=== PATIENT | male | born 1940 | race Caucasian/White ===

== ENCOUNTER 2020-11-17 19:59 | Inpatient (IN) | payer MEDICARE, OTHER ==
[~2020-11-17] VITALS: Ht 198.1 cm; Wt 86.9 kg
[~2020-11-17 19:59] MED LIST: ASPIRIN325 MG PO; CARVEDILOL6.25 MG PO; FUROSEMIDE40 MG PO; LOSARTAN POTASS50 MG PO; NICOTINE PATCH1 EAC1 TD; OMEPRAZOLE20 MG PO; POTASSIUM CHLO20 ME1 PO; SUCRALFATE1 GM/10 ML PO; VENTOLIN HFA18 GM INH
[2020-11-17] MEDS ORDERED: METFORMIN HCL500 M1 PO (20:41)
--- NOTE | 2020-11-18 02:57 | NUR ---
11/18/20 0257 Arely Lock 0140: PT ARRIVES TO CCU RM 126 FROM OR WITH OPA IN PLACE AND EYES CLOSED. PT DOES NOT AROUSE TO TUCK IN TO RM. PT ON 8 L VIA MASK, FOGS MASK WITH RESP. 0151: PT WAKES UP AND OPENS EYES, LOOKS AROUND ROOM. PT TRYS TO TALK WITH OPA IN PLACE AND IS INSTRUCTED TO SPIT OPA OUT. PT FOLLOWS COMMANDS AND OPA IS REMOVED. PT GRABS TOWARD BP CUFF AND NG TUBE, REORIENTED. PT DENIES ANY NAUSEA OR PAIN WHEN ASKED AND STATES, "IT FEELS BETTER ALREADY." XRAY IN RM AT THIS TIME. 0155: RESP THERAPY IN PT ROOM, TITRATES O2 AND CHANGES MASK TO OXYMASK. NG ON INTERMITTENT WALL SUCTION. NICO DRAIN EMPTIED OF APPROX 90 MLS SANGUINOUS DRAINAGE. PT CONT TO DENY PAIN OR NAUSEA, HOB RAISED, BOTH IV'S IN R AC SL D/T CHF RESTRICTIONS. 0205: O2 REMOVED AT THIS TIME AND PT ENCOURAGED TO TAKE DEEP BREATHS, ABLE TO BUMP SATS TO 90% ON RA. PT STATES "VERY LITTE.. 1-2" WHEN ASKED ABOUT PAIN, STATES HE "IS TOUGH AND STILL WORKS A JUST[employer]." PT REDIRECTED FROM GRABBING AT NG TUBE, STATES "IT IS UNCOMFORTABLE." 0210: DR. BRIONES IN PT ROOM. 0215: DR. WRAY IN PT ROOM TO CONSULT. VERBAL REPORT GIVEN TO JEFFERSON ALICIA AND CARE IS TRANSFERRED AT THIS TIME.
--- NOTE | 2020-11-18 03:38 | NUR ---
0230 POST OP RECOVERY DONE BY SLICE PLUG CUTTER OPERATOR HELPER IN CCU. REPORT RECIEVED. PATIENT IS ALERT AND ORIENTED. DENIES PAIN OR NAUSEA. VS STABLE. IN TO CONSULT. DIFFICULT TO GET O2 SAT READING, SEVERAL LOCATIONS ATTEMPTED. 2L NC IN PLACE. NICO DRAIN IN RUQ, 80MLS OF SEROSANGUENOUS DRAINAGE EMPTIED BY FELIX PAULINO. MIDLINE INCISION COVERED, NO SHADOWING. RODRIGUEZ IN PLACE. URINE IS CLOWDY. NG TUBE CONNECTED TO LIWS, RED/BROWN DRAINAGE NOTED. PATIENT DECLINES TO HAVE FAMILY OR FRIENDS CALLED. LIMITED NEXT OF KIN CONTACTS AND PATIENT STATES "I'LL CALL THEM AT A MORE REASONABLE HOUR". IV FLUIDS PER ORDER. SCHEDULED LOPRESSOR AND ACCU CHECK WITH SSI. 0315 PATIENT RESTING IN BED. HOB ELEVATED. DENIES ANY NEEDS AT THIS TIME. CALL LIGHT IN REACH.
--- NOTE | 2020-11-18 05:21 | NUR ---
LAB IN TO DRAW MORNING LABS. THIS RN PULLED SAMPLE FROM IV SITE, WASTE 5MLS PER PROTOCOL. PATIENT IS ALERT AND ORIENTED. DENIES PAIN OR NAUSEA. NICO EMPTIED FOR 50 MLS SEROSANGUENOUS FLUID. RODRIGUEZ EMPTIED FOR 100 MLS CONCENTRATED URINE. IV FLUIDS PER ORDER, SITE WNL. MIDLINE DRESSING CDI. ABD MILDLY DISTENDED. NG TUBE IN PLACE, CONTINUES TO HAVE BROWN DRAINAGE.
--- NOTE | 2020-11-18 06:45 | NUR ---
patient appears to be sleeping soundly. iv fluids per order, site wnl. call light in reach. vs stable.
--- NOTE | 2020-11-18 06:45 | CONS ---
[facility] [address], [place] [address] Signed DATE OF CONSULTATION: 11/17/2020 CHIEF COMPLAINT: Epigastric abdominal pain. 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 At 7 o'clock tonight, he abruptly developed chest pain that went down to his upper abdomen. He called his neighbor and had him brought to the emergency room. In the emergency room, he does not appear particularly ill or toxic. His troponin levels were fine. EKG was showing some sinus rhythm with sinus arrhythmia. Magnesium was just little low. He was given some magnesium right now. COVID test was negative. White count was up and a lactic acid was a little up at 2.6. Chest x-ray was done and there was free air underneath the right hemidiaphragm. CT scan of chest, abdomen, and pelvis was done and there is no evidence of any dissection, but he does have free air above the liver with inflammatory changes over the front of the stomach and the duodenum. He does have diverticulosis, but no inflammatory changes. He also has a right inguinal hernia and some gallstones. The concern obviously is for a perforated ulcer. However, he seems to be taking omeprazole, sucralfate, although he is not the absolute best historian. I have been asked to see him emergently here in the ER. In the meantime, he receives Zosyn and vancomycin due to the sepsis protocol. PAST MEDICAL HISTORY: NC, congestive heart failure, hypertension, diabetes, COPD, and diverticulosis. PAST SURGICAL HISTORY: and colonoscopy with Dr. Zelaya, which he believes was negative. SOCIAL HISTORY: He continues to smoke a pack cigarettes a day. Does not drink. He is from his two children. 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 Dr. Osvaldo Chappell is a primary care provider. He prefers the [facility] pharmacy. He has a good friend, Avinash Emerson at [phone], that he has given me permission to call. FAMILY HISTORY: Apparently coronary artery disease and heart attacks. REVIEW OF SYSTEMS: He had 10 systems reviewed and he seems to be at his baseline. No major other issues. No history of peptic ulcer disease. ALLERGIES: None. Electronically Signed By: YESSENIA BRIONES MD 11/18/20 0645 PATIENT NAME: JOSE QUINONES CONSULTATION DATE OF : 36 REPORT #: [id number] PHYSICIAN: YESSENIA BRIONES MD PCP: DEISI GILLETTE MD REPORT IS CONFIDENTIAL AND NOT TO BE RELEASED WITHOUT AUTHORIZATION [facility] [address], [place] [address] Signed MEDICATIONS: Nicotine patch, carvedilol, omeprazole, sucralfate, potassium chloride, Lasix, albuterol, and metformin. PHYSICAL EXAMINATION: VITAL SIGNS: Blood pressure 127/76, heart rate 91, respiratory rate 21, temperature is 98.6. He is 99% on room air. He is 6 feet 6 inches tall at 89 kg. GENERAL: Jose is an 80-year-old gentleman, sitting semi-recumbent in his ER bed. He does not appear systemically ill or toxic. It is clear he has been a long-time smoker. He is very cooperative in general. LUNGS: Have moderately distant breath sounds. heart: Little irregular, but generally sinus rhythm. I could not specifically hear a murmur. ABDOMEN: Generally flat, but he is certainly guarding and he has peritonitis in the upper abdomen. LABORATORY DATA: His white blood count 16.9, hemoglobin 17, neutrophils 89. BUN 22 and creatinine 1.06. COVID test is negative. Lactic acid is 2.6. Magnesium is 1.6. Troponin is negative. Albumin is 4.0, lipase is 15. Blood cultures are pending. RADIOGRAPHIC STUDIES: Chest x-ray shows left ventricular hypertrophy with free air underneath the right hemidiaphragm. CT scan of the chest, abdomen, and pelvis shows the left ventricular hypertrophy. The free air anterior the liver with haziness in front of the stomach and duodenum. He has a couple of gallstones. He has a right inguinal hernia. He does have diverticulosis, but it does not appear inflamed. ASSESSMENT/PLAN: Jose is an 80-year-old gentleman, who presents with what appears to be a perforated viscus, most likely the stomach or his duodenum. He has already received IV fluids and antibiotics. We are going to be take him directly to the operating room from the emergency room. I have reviewed this with Jose in detail. I have reviewed with him a laparotomy along with the concept of oversewing or Hua patch for perforated ulcer. He understands there is risk including, but not limited to bleeding, infection, scarring, change in contour of the skin, damage to bowel, recurrent ulcers, incisional hernias as well, heart attack, stroke and blood clots and other unforeseen comorbidities. He has expressed understanding and would like to proceed. Yessenia Briones MD Electronically Signed By: YESSENIA BRIONES MD 11/18/20 0645 PATIENT NAME: JOSE QUINONES CONSULTATION DATE OF : 36 REPORT #: [id number] PHYSICIAN: YESSENIA BRIONES MD PCP: DEISI GILLETTE MD REPORT IS CONFIDENTIAL AND NOT TO BE RELEASED WITHOUT AUTHORIZATION [address] [place] [address] Signed ALB/MODL /[id number] cc: MD Osvaldo Salas DO Copies: YESSENIA BRIONES MD, ARIAN DO ~ Electronically Signed By: YESSENIA BRIONES MD 11/18/20 0645 PATIENT NAME: JOSE QUINONES CONSULTATION DATE OF : 36 REPORT #: [id number] PHYSICIAN: YESSENIA BRIONES MD PCP: DEISI GILLETTE MD REPORT IS CONFIDENTIAL AND NOT TO BE RELEASED WITHOUT AUTHORIZATION
--- NOTE | 2020-11-18 06:45 | OR ---
[facility] [address], [place] [address] Signed DATE OF OPERATION: 11/18/2020 SURGEON: Yessenia Briones MD PREOPERATIVE DIAGNOSIS: Perforated viscus. POSTOPERATIVE DIAGNOSIS: Perforated duodenal ulcer. PROCEDURE: 1. Primary repair and Hua patch of perforated duodenal ulcer. 2. Placement of drain. ESTIMATED BLOOD LOSS: None. In was 1.7 L of crystalloid. URINE OUTPUT: 300 mL over 1.5 hours. FINDINGS: Jose had significant gastric contents through most of the upper abdomen, but also down in the pelvis as well. It took 5 L of crystalloid completely irrigated and suctioned out until clear. INDICATIONS: Jose is an 80-year-old gentleman, who lives alone and apparently is estranged from his two children. He continues to smoke a pack cigarettes a day. 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 He was watching TV about 7 o'clock tonight and felt what he thought was chest pain, then it went down toward the abdomen. He called his neighbor and had him brought to the emergency room. In the emergency room, a chest x-ray was unremarkable except for free air underneath the right hemidiaphragm. White count was elevated along with his lactic acid at 2.6. His magnesium was just a little low at 1.6 and he was having some abnormal heartbeat, so that was replaced in the ER. His troponin was negative. The CT scan of chest, abdomen, and pelvis showed the free air mostly in the upper abdomen with some haziness around the anterior stomach and duodenum along with two gallstones. He does have diverticulosis and a right inguinal hernia. I have been asked to see him emergently in the emergency room. In the meantime, he was given Zosyn and vancomycin due to the sepsis protocol. I met with Jose. He was actually sitting supine semi-recumbent in his ER bed and watching TV. He was definitely guarding and had Electronically Signed By: YESSENIA BRIONES MD 11/18/20 0645 PATIENT NAME: JOSE QUINONES OPERATIVE REPORT DATE OF : 36 REPORT #: [id number] PHYSICIAN: YESSENIA BRIONES MD PCP: DEISI GILLETTE MD REPORT IS CONFIDENTIAL AND NOT TO BE RELEASED WITHOUT AUTHORIZATION [facility] [address] [place] [id number] Signed peritonitis in his upper abdomen. I explained him the current findings. I explained him the nature of midline incision with repair of gastric or perforated duodenal ulcer. I explained to him it was very unlikely this would be diverticular disease. He said he is not aware of the fact that he has a right inguinal hernia. He understands the expected intraop and postop course. We did review the risks including, but not limited to bleeding, infection, scarring, change in contour of the skin, damage to bowel, continued leak from the duodenal ulcer as well as gastric outlet obstruction, incisional hernias, and we even discussed myocardial infarction, deep vein thrombosis and strokes. He had expressed understanding and wished to proceed. PROCEDURE NOTE: Jose was taken in the operating room and placed in the supine position under general endotracheal tube anesthesia. He was already on preoperative antibiotic. We added 5000 units subcutaneous heparin. SCDs were utilized. A Suarez catheter was inserted with return of clear, but terry colored urine. He was then prepped and draped in the usual sterile fashion. A standard upper midline incision was made and carried down to the abdomen with the help of the cautery. We immediately encountered tremendous amount of gastric contents in the upper abdomen. It was suctioned out. We could easily see his perforated ulcer about 1 cm in diameter. We had placed an NG tube, but there was enough food particles in the stomach, getting much out from the stomach. We initially used his omentum to place a Hua patch without bringing the ulcer together. Unfortunately, with little pressure on the stomach that continued leak. Therefore, we took that down and we closed the ulcer primarily with interrupted 2-0 silk sutures. We then placed a Hua patch over that and sutured it back down and that proved to be a nice seal. We then used 5 L of warm saline to irrigate his entire abdomen including the pelvis. After this, a #10 flat Ulises drain was brought alongside the repair and out the right subcostal margin. It was held in place at the level of skin with 2-0 nylon suture. The fascia was reapproximated with interrupted #1 PDS sutures. Local anesthetic was injected in the abdominal wall. The dermis was reapproximated with interrupted 3-0 subcuticular Monocryl sutures. [place] were used to bring the skin back together. Unfortunately, during the middle of our surgery, he had a short segment of asystole and he had 20-30 seconds of chest compressions. We could hear his ribs pop during the procedure. He did not have increased airway pressures during the procedure. We are currently awaiting our chest x-ray in our ICU. Otherwise, he did well during the surgery. Yessenia Briones MD Electronically Signed By: YESSENIA BRIONES MD 11/18/20 0645 PATIENT NAME: JOSE QUINONES OPERATIVE REPORT DATE OF : 36 REPORT #: [id number] PHYSICIAN: YESSENIA BRIONES MD PCP: DEISI GILLETTE MD REPORT IS CONFIDENTIAL AND NOT TO BE RELEASED WITHOUT AUTHORIZATION [address] [place] [address] Signed [facility]/MODL /[id number] cc: DO Yessenia Galindo MD Copies: ROBERT HORTA ANDREW L MD ~ Electronically Signed By: YESSENIA BRIONES MD 11/18/20 0645 PATIENT NAME: JOSE QUINONES OPERATIVE REPORT DATE OF : 36 REPORT #: [id number] PHYSICIAN: YESSENIA BRIONES MD PCP: DEISI GILLETTE MD REPORT IS CONFIDENTIAL AND NOT TO BE RELEASED WITHOUT AUTHORIZATION
--- NOTE | 2020-11-18 07:30 | NUR ---
RECEIVED REPORT AT 0700, PT IN ROOM AND NO NEW CONCERNS NOTED AT THAT TIME.
--- NOTE | 2020-11-18 08:45 | NUR ---
LOBES ARE DIMINISHED, PT WANTS TO SMOKE... LUQ AND RUQ SOUNDS ARE RARE, LLQ AND RLQ SOUNDS ARE PRESENT. ABD MILDLY DISTENEDED. NO FLATUS SO FAR. PT DENIES PAIN. NO PERIPH. EDEMA NOTED. MIDLINE INCISION IS C/D/I, NICO-DRAIN HAS SOME SHADOWING PRESENT AROUND INSERTION SITE. NICO-DRAIN DRAINAGE IS SEROUSSANG. PT REFUSED INSLUIN, LOVENOX AND NICOTINE PATCH THIS MORNING. MD BRIONES AND MD WRAY ARE AWARE. WILL CONTINUE TO MONITOR.
--- NOTE | 2020-11-18 09:12 | NUR ---
PATIENT AWAKE IN BED, RODRIGUEZ AND NICO DRAINED. MOUTH SWABS PROVIDED FOR ORAL CARE. CALL LIGHT IN REACH, NO OTHER NEEDS AT THIS TIME
--- NOTE | 2020-11-18 11:00 | NUR ---
PT IN ROOM RESTING. NO NEW CONCERNS NOTED AT THIS TIME.
--- NOTE | 2020-11-18 12:30 | NUR ---
AT AROUND 1230, I ATTEMPTED TO GET PT OUT OF BED FOR A WALK. PT DID HAVE A SEVERE EPISODE OF ORTHOSTATIC HYPOTENDION WITH BP 77/48 AND PT BEING VERY DIZZY AND NAUSEADED. PT WAS GIVEN 8MG IV ZOFRAN AND MD WRAY WAS NOTIFIED. RODRIGUEZ WAS NOT D/C AT THIS TIME SINCE PT IS NON-AMBULATORY. BP IS BETTER AT THIS TIME. RUQ AND LUQ SOUNDS ABSENT, RLQ AND LLQ ACTIVE, NO FLATUS. NICO-DRAIN INCISIONS SITE NEEDS CHANGED NOW DUE TO LEAKAGE SINCE PT TRIED TO GET UP. WILL TO CONTINUE TO MONITOR.
[2020-11-18] MEDS ORDERED: LISINOPRIL10 MG PO (13:12)
[2020-11-18] MEDS ORDERED: METOPROLOL SUCC25 MG PO (13:15)
--- NOTE | 2020-11-18 13:33 | NUR ---
PTS DRESSING AROUND NICO DRAIN SATURATED. DRESSING CHANGED. DRAIN APPEARS TO BE WNL. PT TOLERATED WELL
--- NOTE | 2020-11-18 13:50 | NUR ---
THIS PARALEGAL SECRETARY IN ROOM TO CHECK ON PATIENT, FOUND HIM TO BE ATTEMPTING TO STAND UP FROM BED TO BR. PATIENT REMINDED OF HIS RODRIGUEZ AND ENCOURAGED TO SIT BACK DOWN, PER JEFFERSON RAPP HIS BP DROPS CONSIDERABLY WITH ACTIVITY. PATIENT GRUMBLED AND RESISTED FOR A SHORT TIME BUT DID SIT DOWN. RODRIGUEZ AND NICO DRAINED. GOWN WAS SATURATED, JEFFERSON MORRIS IN TO CHANGE BANDAGE. PATIENT NOW BACK TO BED, NG IN PLACE AND PINNED TO GOWN FOR SAFETY. CALL LIGHT IN REACH, NOOTHER NEEDS AT THIS TIME
--- NOTE | 2020-11-18 15:10 | NUR ---
MED REC COMPLETE
--- NOTE | 2020-11-18 16:15 | EKG ---
[facility] [address] [facility] [place] [address] Signed Atrial fibrillation with premature ventricular or aberrantly conducted complexes Left axis deviation Left ventricular hypertrophy with QRS widening Possible Inferior infarct , age undetermined ST \T\ T wave abnormality, consider lateral ischemia Abnormal ECG When compared with ECG of 23-JAN-2016 10:45, Atrial fibrillation has replaced Sinus rhythm Confirmed by SAIDA WRAY MD ([id number]) on 11/18/2020 4:14:53 PM Electronically Signed By: SAIDA WRAY MD 11/18/20 1615 PATIENT NAME: TERRENCE QUINONES Electrocardiogram DATE OF : 36 PHYSICIAN: SAIDA WRAY MD REPORT #: [id number] REPORT IS CONFIDENTIAL AND NOT TO BE RELEASED WITHOUT AUTHORIZATION
--- NOTE | 2020-11-18 16:30 | NUR ---
AT ABOUT 1620 PT PULLED HIS NG-TUBE OUT BECAUSE HE STATED THAT :" IT WAS JUST UNCOFORTABLE AND WE WILL HAVE TO DEAL WITH THIS SOME OTHER WAY". MD BRIONES WAS CALLED BUT I HAVE NOT BEEN ABLE TO GET IN TOUCH WITH HIM SO FAR.
--- NOTE | 2020-11-18 16:54 | NUR ---
CALLED MD BRIONES AGAIN AND WAS ABLE TO REACH HIM. PER MD BRIONES, WE WILL NOT RE-INSERT NG TUBE AT THIS TIME AND JUST WAIT AND SEE.
--- NOTE | 2020-11-18 18:13 | NUR ---
Update from Rn, pt frequently refusing treatment and pulled his ng out. Will follow up with pt tomorrow.
--- NOTE | 2020-11-18 20:00 | NUR ---
shift report recieved. patient anxious and talking about leaving AMA to go smoke. Discussed care options with patient and encouraged patient to stay. Provided patient with prn ativan. Patient refused insulin, no accu check done. lopressor provided per order. vs stable. patient removed BP. left off at this time. oropeza has 100mls output. ailyn 50 mls serosanguenous fluid.
--- NOTE | 2020-11-18 21:00 | NUR ---
EVENING MEDS PROVIDED PER ORDER. PATIENT RESTING IN BED. MORE CALM, MAKING JOKES AND AGREES TO STAY OVER NIGHT. HAS HARSH HACKING COUGH AND SORE THROAT. PROVIDED WITH A FEW ICE CHIPS TO SOOTHE. ALSO PROVIDED SOME HARD CANDIES FOR COMFORT. PATIENT'S LUNG SOUNDS ARE CLEAR. TOLERATING ROOM AIR. ABD IS MILDLY DISTENDED, BOWEL SOUNDS HYPOACTIVE IN RLQ & LLQ AND ACTIVE IN THE UPPERS. NO NAUSEA. SMALL AMOUNT OF SHADOWING ON THE MIDLINE DRESSING. MODERATE AMOUNT OF SHADOWING NOTED ON DRESSING COVERING INCO SITE. NICO EMPTIED FOR 30 MLS SEROSANGENOUS FLUID. RODRIGUEZ CARE DONE, PATIENT UNABLE TO AMBULATE DUE TO ORTHOSTATIC HYPOTENSION. URINE OUTPUT IS AVERAGE 25ML HOUR THESE LAST 4 HOURS AND IS DARK DOV COLORED. PATIENT REPORTS PAIN ONLY WITH COUGHING IN THE ABD, DECLINED PAIN MEDS. PROVIDED WITH ICE PACK. CALL LIGHT IN REACH. BED ALARM ACTIVE. ENCOURAGED PATIENT TO REST.
--- NOTE | 2020-11-18 21:46 | EKG ---
[facility] [address] [facility] [place] [address] Signed Undetermined rhythm Left axis deviation Left ventricular hypertrophy with repolarization abnormality Abnormal ECG When compared with ECG of 17-NOV-2020 21:04, (Unconfirmed) Current undetermined rhythm precludes rhythm comparison, needs review ST more depressed in Inferior leads ST elevation has replaced ST depression in Lateral leads Nonspecific T wave abnormality no longer evident in Inferior leads Confirmed by SAIDA WRAY MD ([id number]) on 11/18/2020 9:46:21 PM Electronically Signed By: SAIDA WRAY MD 11/18/20 2146 PATIENT NAME: TERRENCE QUINONES Electrocardiogram DATE OF : 36 PHYSICIAN: SAIDA WRAY MD REPORT #: [id number] REPORT IS CONFIDENTIAL AND NOT TO BE RELEASED WITHOUT AUTHORIZATION
--- NOTE | 2020-11-18 22:20 | NUR ---
PATIENT RESTING QUIETLY, APPEARS TO BE SLEEPING. ALLOWS BP TO BE TAKEN ON RIGHT ARM. BP WNL. PATIENT DENIES ANY NEEDS. CALL LIGHT IN REACH.
--- NOTE | 2020-11-19 00:30 | NUR ---
PATIENT UP TO THE EDGE OF THE BED. PATIENT FEELS NEED TO VOID. REPORTS BEING LIGHTHEADED SITTING UP. PATIENT FEELS LIKE THE RODRIGUEZ ISN'T DRAINING HIS URINE. PATIENT APPEARS RESTLESS AND SOMEWHAT TREMULOUS. WHEN ASKED ABOUT PAIN AND PRN PAIN MEDS THE PATIENT AGREES THAT MIGHT HELP HIM AT THIS TIME BUT DOES NOT SPECIFIY PAIN OR RATE IT. PRN DILUDID PROVIDED. PATIENT'S VS STABLE. ASSISTED BACK INTO BED. NICO EMPTIED FOR 30 MLS SEROSANGUENOUS FLUID. RODRIGUEZ HAS 100 MLS DARK DOV COLORED URINE. IV FLUIDS PER ORDER, SITE WNL. PATIENT REPORTS BEING MORE COMFORTABLE AFTER RESTING FOR SEVERAL MINS. BED ALARM ACTIVE. CALL LIGHT IN REACH. REMINDED PATIENT TO CALL FOR ASSISTANCE.
--- NOTE | 2020-11-19 02:46 | NUR ---
patient sleeping soundly. vs stable. scheduled meds provided. patient woke only breifly to allow for finger stick, accu check within range. no ssi required. call light in reach.
--- NOTE | 2020-11-19 05:00 | NUR ---
PATIENT UP TO THE EDGE OF THE BED. REPORTS HAVING SMALL CHILDREN IN HIS ROOM. PATIENT IS DISORIENTED TO SURROUNDINGS, EASILY REORIENTED. ASSISTED PATIENT BACK INTO BED. RODRIGUEZ DRAINING DARK DOV COLORED URINE. VS STABLE. PATIENT DENIES PAIN AND NAUSEA. MOVES EASILY. IV FLUIDS PER ORDER, SITE WNL.
--- NOTE | 2020-11-19 06:00 | NUR ---
PATIENT CONTINUES TO GET OUT OF BED AND REQUIRES FREQUENT REORIENTATION. PRN ATIVAN PROVIDED. UPDATE GIVEN TO . CONCERNS FOR LOW URINE OUTPUT AND PATIENT'S CONFUSION DISCUSSED. PATIENT ALSO CONTINUES TO BE LIGHTHEADED UPON SITTING UP. LABS DRAWN FROM IV SITE. PATIENT RESTING IN BED WITH BED ALARM ACTIVE.
--- NOTE | 2020-11-19 08:00 | NUR ---
PT AT THIS TIME IS DISORIENTED TO PLACE, TIME, DATE AND SITUATION. CIWA WAS A 5. PT WAS OFF THE O2 PULE OXIMETRY AT START OF SHIFT. PULSE OXIMERTY WAS PUT BACK ON AND PT WAS IN THE LOW 80'S. PT CURRENTLY ON 2L O2 NC AGAIN. URINE OUTPUT IS STILL INADEQUATE AND URINE COLOR IS DOV. MD WRAY IS AWARE OF ALL ISSUES. LLL IS TIGHT/ ABSENT, ALL OTHER LOBES ARE DIMINISHED. ABD SOUNDS ARE ACTIVE THIS MORNING AND PT IS PASSING FALTUS. MIDLINE DRESSING WAS REMOVED AND TERESA ARE INTACT. ABD IS NOT MORE DISTENDED THAN YESTERDAY, PT DENIES N/V AND IS NOT BLECHING EITHER. NO PERIPHERAL EDEMA NOTED EITHER. WILL CONTINUE TO MONITOR.
--- NOTE | 2020-11-19 09:18 | NUR ---
MD WRAY ORDERED CHEST X-RAY, ECHO AND ADDITIONAL LABS. WILL CONTINUE TO MONITOR. PT REMAINS ON 2LO2 NC.
--- NOTE | 2020-11-19 09:44 | NUR ---
MD WRAY WAS TOLD IN PERSON ABOUT CHEST X-RAY AND LABS. MD BRIONES WAS NOTIFIED PER PHONE CALL. MD CARABALLO ORDERED SOME LASIX.
--- NOTE | 2020-11-19 10:47 | NUR ---
Patient admitted at high risk for malnutrition due to has been eating poorly prior to admission and has had 15-20 lb weight loss in the past 6 weeks per H&P. He had a repair of a perforated duodenal ulcer on 11/18/20. He remains NPO at this time. BMI is 22.14 which is WNL. It is noted he has a history of CHF and diabetes. Patient's estimated calorie needs are: 2,200 to 2,600 for weight maintenance. Will continue to monitor the patient as he recovers from his surgery and as his diet advances when medically appropriate.
--- NOTE | 2020-11-19 11:28 | NUR ---
A FEW MINUTES AGO I HAD PT SITTING ON SIDE OF BED. HIS ORTHOSTATIC HYPOTENSION HAS RESOLVED BUT PT IS STILL DIZZY WHEN SITTING AND STANDING. INCREASED WEAKNESS WHILE STANDING WAS ALSO NOTED. PT ALSO HAD ABD PAIN 4/10 AND NAUSEA. PRN ZOFRAN AND DILAUDED WAS GIVEN. ABDOMEN IS NOT MORE DISTENDED AT THIS TIME. WILL CONTINUE TO MONITOR.
--- NOTE | 2020-11-19 11:30 | NUR ---
PATIENT AT SIDE OF BED AND THEN STANDING WITH ASSISTANCE FOR ORTHOSTATIC VITALS. BACK AND HAIR WASHED. LINENS CHANGED.
--- NOTE | 2020-11-19 12:06 | NUR ---
LUNG SOUNDS ARE UNCHANGED. PT REMAINS ON 2-3L O2 NC. ABD SOUNDS PRESENT, NO INCREASE IN ABD DISTENTION. PT DID HOWEVER STATE THAT HE NO LONGER IS PASSING GAS. ABD SOUNDS PRESENT HOWEVER. V/S WDL, URINE OUTPUT WDL SO FAR SINCE LAST ASSESSMENT. WILL CONTINUE TO MONITOR. ABD MIDLINE INCISION IS DRY/CRUSTY/TERESA INTACT. NICO-DRAIN OUTPUT IS SEROUSANG. IN NATURE AND INSERTION SITE DRESSING HAS A MODERATE AMOUND OF DRAINAGE PRESENT.
--- NOTE | 2020-11-19 14:37 | NUR ---
PT AT THIS TIME IS SITTING AT SIDE OF BED. ABD SOUNDS PRESENT. LOBES ONCE AGAIN ARE TIGHT AND DIMINISHED ALL OVER. PT DENIED PAIN AND SOB. MD BRIONES WAS CALLED SINCE HE HAS NOT TOLD PT YET ABOUT THE PNEUMO.
--- NOTE | 2020-11-19 15:47 | NUR ---
Update from RN. Pt had Echo today, EF 35% per Dr. Remains on 022-3 L. Has confusion.
--- NOTE | 2020-11-19 16:15 | NUR ---
ALL LOBES DIMINISHED AND TIGHT. PT REMAINS ON 2L O2 NC. ROOM AIR TRIAL FAILED, PT O2 SATS DROPPED TO 87% ON RA. RUQ AND LUQ HAVE ACTIVE BOWEL TONES. THE LOWER QUADRANTS HAVE HYPOACTIVE BOWEL TONES NOW. PT NOT PASSING ANY MORE FLATUS. ABD HAS NO INCREASE IN DISTENTION SO FAR. MIDLINE INCISION IS CRUSTY/DRY/INTACT/DELAMR. NO PERIPH. EDEMA PRESENT, RADIAL AND PEDIS PULSES +2. PT STILL CONFUSED ABOUT YEAR, MONTH, DAY, DATE, PLACE, CIRCUMSTANCE AND HIS DX FOR ADMISSION TO HOSPITAL.
--- NOTE | 2020-11-19 20:45 | NUR ---
PATIENT RESTING IN BED. APPEARS COMFORTABLE. ORIENTED TO SELF AND SURROUNDINGS. BLOOD GLUCOSE 78. PROVIDED PATIENT WITH HARD CANDY. IV FLUIDS PER ORDER, SITE WNL. ABX STARTED. NICO HAS MINIMAL OUTPUT, SEROSANGUENOUS AND THIN. PATIENT DENIES NAUSEA. NICO DRESSING, GAUZE REMOVED. MIDLINE WELL APPROXIMATED, OPEN TO AIR. RODRIGUEZ CARE DONE. PATIENT DENIED ANY NEEDS AT THIS TIME. CALL LIGHT IN REACH. BED ALARM ON.
--- NOTE | 2020-11-19 21:07 | NUR ---
REPORTED PATIENT'S BLOOD GLUCOSE TO , FLUID ORDERS CHANGE.
--- NOTE | 2020-11-19 21:52 | NUR ---
IV FLUIDS CHANGED PER ORDER. PATIENT RESTING IN BED. DENIES NEEDS. APPEARS COMFORTABLE. VERBALIZED UNDERSTANDING OF CALL LIGHT. BED ALARM ACTIVE.
--- NOTE | 2020-11-19 22:07 | NUR ---
REPORT RECEIVED FROM MARAL PAULINO. PT RESTING WITH EYES CLOSED.
--- NOTE | 2020-11-19 23:00 | NUR ---
OXYGEN SATS DROPPED DOWN TO 82%, IN TO CHECK ON PT AND HE HAD O2 TUBING MISSPLACED. OXYGEN REPLACED AND SATS UP TO 90%. PT DENIES NEEDS AT THIS TIME.
--- NOTE | 2020-11-20 02:34 | NUR ---
IV METOPROLOL GIVEN. BLOOD SUGAR WAS 95. PT AWAKE IN BED, GETS UP TO SIT AT THE EDGE OF THE BED FOR A WHILE.
--- NOTE | 2020-11-20 03:54 | NUR ---
PT HAD BEEN SITTING UP AT BEDSIDE FOR APROX 1 AND A HALF HOURS. COMPLAINED OF CONGESTION IN CHEST, FREQUENT COUGHING. CORONET GIVEN TO HIM WITH INSTRUCTIONS, RT ALSO IN TO PROVIDE EDUCATION. PT IS FREQUENTLY REMOVING O2 TUBING AND DESATS DOWN TO 82% ON ROOM AIR. PT ASSISTED BACK TO BED, OXYGEN IN PLACE SPO2 98% AND CALL LIGHT IN HAND. OVERALL PT HAS BEEN RESTLESS AND IRRITATED WITH BEING IN THE HOSPITAL, MENTIONS WANTING A CIGAR BUT DOES NOT WANT A NICOTINE PATCH. CURRENTLY TRYING TO GET TO SLEEP.
--- NOTE | 2020-11-20 06:26 | NUR ---
CXR IN TO DO PXR
--- NOTE | 2020-11-20 07:03 | NUR ---
PT HAS SLEPT VERY LITTLE THROUGH THE NIGHT, INCREASED O2 NEEDS UP TO 4L/NC WITH PT FREQUENTLY REMOVING CANNULA AND NEEDING TO BE REPLACED.
--- NOTE | 2020-11-20 07:53 | NUR ---
REPORT RECEIVED BY NIGHTSHIFT RN, WILL CONTINUE PLAN OF CARE. WHEELCHAIR DRIVER AND IMAGING CURRENTLY TRANSFERRING PT DOWN TO GET A CT SCAN.
--- NOTE | 2020-11-20 08:15 | NUR ---
PT SCHEDULED FOR CHEST CT THIS AM. TOOK PT TO CT IN A WHEELCHAIR AT APPROX 0803. PT WAS NORMAL WITH NO COMPLAINTS. PT INTO CT SCANNER AT APPROX 0805, CONTINUES NORMAL. WHEN PT REMOVED FROM SCANNER, HE COMPLAINS THAT HE CAN NOT MOVE HIS LEFT ARM APPROPRIATELY. BE FAST EXAM COMPLETED. POSITIVE BE FAST FOR LEFT ARM AND LEFT LEG WEAKNESS. CODE STROKE CALLED AT 0807. DR PALACIOS AND DR BRIONES NOTIFED. DR KYLE FROM EMERGENCY ROOM RESPONDS TO CT SUITE. AT THE TIME OF CODE STROKE BEING CALLED PTS BLOOD PRESSURE 159/108, HEART RATE 84 AND BLOOD SUGAR 106. PT CONTINUES ALERT AND ORIETNED. CT OF HEAD COMPLETED AND PT BROUGHT BACK TO HIS ROOM. CONTINUES WITH WEAKNESS TO LEFT SIDE. PTS PRIMARY NURSE, RUTHIE, TO TAKE OVER.
--- NOTE | 2020-11-20 09:50 | NUR ---
PT ARRIVED FROM CT TO CCU AROUND 0840. PT BROUGHT BY MACHINE TOOL BUILDER VIA WHEELCHAIR. PT AWAKE AND ALERT UPON ARRIVAL AND WAS ABLE TO GET UP FROM THE WHEELCHAIR AND PIVOT TO THE BED. PT PLACED BACK ON CONTINUOUS IVFS. VITALS TAKEN AND PT ASSESSED. PT WAS ALERT AND ORIENTED TO SELF, LOCATION, YEAR, BUT NOT MONTH. PT NOTED TO HAVE LEFT SIDED WEAKNESS ON LEFT FOOT BUT EQUAL STRENGTH AND MOVEMENT IN UPPER EXTREMITIES AND FACE. PT REPORTS NO NUMBNESS OR TINGLING IN HANDS AND FEET WHEN ASKED. MIDLINE INCISION ASSESSED AND IS C/D/I AND OPEN TO AIR. BOWEL TONES HYPOACTIVE WHEN ASSESSED. WHEN AUSCULTATING LUNGS WHEEZES HEARD IN BASES BILATERALLY. PT ON 3L O2 NC, SPO2 AT 94%. SCHEDULED MEDICATIONS ADMINISTERED, NO INSULIN GIVEN DUE TO BLOOD SUGAR OF 97. PT NOW HAS IV ABX INFUSING ORDERED. DR. PALACIOS IN TO SEE PT AFTERWARDS AND ASSESS PT. IT WAS NOTED THAT PT HAD EQUAL STRENGTH BILATERALLY FOR THIS ASSESSMENT. NEW ORDERS GIVEN BY DR. PALACIOS AT THIS TIME (SEE CHART). RT NOW IN TO DO A BREATHING TREATMENT. PT REPORTS NO FURTHER NEEDS AT THIS TIME AND IS SITTING UP IN BED AWAKE AND ALERT, RT IN ROOM WITH PT. IV ABX INFUSING ORDERED, WILL CONTINUE PLAN OF CARE. CALL LIGHT IN REACH, BED IN LOWEST POSITION.
--- NOTE | 2020-11-20 10:58 | NUR ---
THIS RN IN TO ADMINISTER SCHEDULED MEDICATIONS AND DC RODRIGUEZ. PT LAYING IN BED AT THIS TIME AWAKE AND ALERT, IV ABX INFUSING ORDERED. ORDERED MEDICATION ADMINISTERED DIRECTED (SEE MAR). PT RODRIGUEZ THEN DC'D AFTERWARDS. PT TOLERATED REMOVAL WELL, CATHETER WAS INTACT UPON REMOVAL. NEW DRESSINGS ALSO PLACED ON IV SITES AT THIS TIME, ONE IV ON THE RIGHT AC WAS DC'D AT THIS TIME IT WAS LEAKING AND SLOW TO FLUSH. REMOVAL DONE PER POLICY, IV INTACT UPON REMOVAL, PT TOLERATED REMOVAL WELL. IV SITE WNL AND C/D/I. PT REPORTS NO FURTHER NEEDS AT THIS TIME WHEN ASKED, WILL CONTINUE PLAN OF CARE. PT ON 3L O2 NC, IV ABX INFUSING ORDERED ALONG WITH D10, CALL LIGHT IN REACH, URINAL IN REACH, BED IN LOWEST POSITION.
--- NOTE | 2020-11-20 11:50 | NUR ---
THIS RN IN TO CHECK ON PT, IT WAS NOTED THAT PT IV WAS ON THE BED. PT IV SITE ASSESSED AND WNL, IV NO LONGER PRESENT, BUT SITE IS NOT BLEEDING. IV CATHETER ASSESSED AND IS INTACT. PT STATES IT MUST HAVE FALLEN OUT WHILE REPOSITIONING. THIS RN ATTEMPTED TO PLACE A NEW IV ON THE PT BUT WAS UNABLE TO. PT STATED HE NEEDED A BREAK BEFORE ATTEMPTING A SECOND TIME HE DISLIKED NEEDLES. PT SITTING UP IN BED AT THIS TIME RESTING. PT REPORTS NO FURTHER NEEDS A THIS TIME, WILL CONTINUE PLAN OF CARE. CALL LIGHT IN REACH, BED IN LOWEST POSITION, 3L NC ON PT, IV TO BE PLACED.
--- NOTE | 2020-11-20 14:37 | NUR ---
THIS RN IN TO ASSESS PT AND ADMINISTER SCHEDULED MEDICATIONS. PT ALERT AND ORIENTED X4. PT ASSESSED AND ALSO HAS EQUAL STRENGT IN LOWER AND UPPER EXTREMITIES. PT DENIES ANY NUMBNESS OR TINGLING AND STATES HIS FEELING AND STRENGTH FEEL NORMAL. SCHEDULED MEDICATION ADMINISTERED (SEE MAR). PT DUE TO VOID AND STATES HE WILL TRY TO VOID INTO HIS URINAL. PT REPORTS NO FURTHER NEEDS AND IS STILL SITTING AT THE SIDE OF THE BED, PT ON OXYMASK AT THIS TIME AT 10L O2, SPO2 AT 100%. MIDLINE INCISION STILL C/D/I, BOWEL TONES HYPOACTIVE, NICO DRAIN IN PLACE AND DRAINING SEROSANGINOUS FLUID. PT HAS NO COMPLAINTS OF PAIN WHEN ASKED AT THIS TIME. WILL CONTINUE PLAN OF CARE. CALL LIGHT IN REACH, BED IN LOWEST POSITION, IVF INFUSING ORDERED.
--- NOTE | 2020-11-20 18:10 | NUR ---
THIS RN IN TO ASSESS PT AND ADMINISTER SCHEDULED MEDICATION. PT SITTING AT THE SIDE OF THE BED ON 9L OXYMASK. PT ASSESSED AT THIS TIME AND VITALS TAKEN. MIDLINE INCISION C/D/I AT THIS TIME, BOWEL TONES PRESENT BUT HYPOACTIVE, PT REPORTS NO PAIN WHEN ASKED. WHEEZES PRESENT BILATERALLY IN LUNG BASES. PULSES STRONG WHEN ASSESSED. PT ALSO NOTED TO HAVE URINATED 150ML INTO URINAL PRIOR TO ARRIVING. PT ASKED AT THIS TIME IF HE WANTED TO SIT ON THE BEDSIDE RECLINER, PT STATED YES. PT ABLE TO STAND UP WITHOUT ASSISTANCE AND PIVOT TO THE RECLINER. PT NOW RESTING ON RECLINER ON ROOM AIR, SPO22 MAINTAINING AT 92%. PT REPORTS NO FURTHER NEEDS AT THIS TIME, WILL CONTINUE PLAN OF CARE. CALL LIGHT IN REACH, IVF INFUSING ORDERED.
--- NOTE | 2020-11-20 18:24 | NUR ---
DR. PALACIOS CALLED AT THIS AND UPDATED ON PT AND ON PT'S LOW BLOOD PRESSURE. NEW ORDERS GIVEN TO START ANOTHER 1L LR BOLUS OVER 1 HOUR AND THEN CONTINUE FLUIDS AT 125ML/HR, ADVANCE TO CLEAR LIQUIDS, INSERT A RODRIGUEZ, AND DRAW A VBG. WILL CONTINUE PLAN OF CARE.
--- NOTE | 2020-11-20 19:30 | NUR ---
REPORT RECEIVED FROM RUTHIE PAULINO. PT IS AWAKE, SITTING UP IN CHAIR. DENIES NEEDS AT THIS TIME, CALL LIGHT IN REACH.
--- NOTE | 2020-11-20 20:40 | NUR ---
IN TO DO ASSESSMENT, ASSIST PT BACK TO BED AND DO HS MEDS. PT ALSO DID IS. HE STATES HE IS FEELING MUCH BETTER TODAY.
--- NOTE | 2020-11-20 23:00 | NUR ---
PT HAS BECOME INCREASINGLY RESTLESS, SITTING UP AT BEDSIDE. REFUSING TO WEAR OXYGEN. STATING HE WANTS TO EAT, CONCERNED THAT HIS BLOOD SUGARS HAVE BEEN LOW, REASSURED HIM THAT HE IS GETTING DEXTROSE IN IVF AND HIS BLOOD SUGARS HAVE BEEN WNL. VERY CONCERNED ABOUT BEING ABLE TO GO HOME TOMORROW.
--- NOTE | 2020-11-21 01:00 | NUR ---
PT HAS CONTINUED TO BE RESTLESS, REFUSING TO WEAR OXYGEN. BLOOD SUGAR CHECKED, PT REFUSES INSULIN AND IV METOPRLOL. PT C/O FEELING WEAK "YOU COULD KNOCK ME OVER WITH A FEATHER" AND GENERALIZED DISCOMFORT, UNSURE IF IT IS NAUSEA OR NOT, STATES, "NO I DONT THINK MY STOMACH IS UPSET" THEN "YES, MAYBE I AM NAUSEATED." 4MG IV ZOFRAN GIVEN AND 2MG OF HALDOL GIVEN.
--- NOTE | 2020-11-21 01:30 | NUR ---
PT IS NOT RESTLESS, ASSISTED WITH LYING BACK IN BED.
--- NOTE | 2020-11-21 02:00 | NUR ---
PT HAD RESTED FOR ABOUT AN HOUR, THEN WOKE UP WITH C/O FEELING SOB AND REQUESTED A BREATHING TX. RT NOTIFIED.
--- NOTE | 2020-11-21 02:32 | NUR ---
RT IN TO WORK WITH PT.
--- NOTE | 2020-11-21 03:18 | NUR ---
PT RESTING IN BED WITH EYES CLOSED. HR HAS COME UP TO 100. WILL GIVE IV METOPROL IF PT ALLOWS.
--- NOTE | 2020-11-21 03:40 | NUR ---
PT APPEARS TO BE SLEEPING, GAVE IV METOPROLOL.
--- NOTE | 2020-11-21 05:46 | NUR ---
LAB IN TO DRAW PT, PT REFUSES LAB DRAW AND OXYGEN, SPO2 81%. PT PULLED OFF 3D SPECIALIST AND O2 SENSOR. IN TO ASK HIM WHY HE IS UPSET AND IF HE WOULD PUT HIS OXYGEN ON, HE STATES "YOU SHOULD KNOW, I WANT TO GO HOME".
--- NOTE | 2020-11-21 05:55 | NUR ---
ESCORTED PATIENT TO MAIN EXIT. PATIENT REFUSES WHEELCHAIR OR ANY ASSIST. PATIENT TO MAIN EXIT AND SITS ON BENCH, REQUESTS A CAB TO BE CALLED. CAB CALLED TO TAKE PATIENT HOME. ATTEMPTS MADE TO DISCUSS BENEFITS OF STAYING FOR CONTINUED MEDICAL TREATMENT, PATIENT DOES NOT WANT TO DISCUSS, "I'M GOING HOME, CALL ME A CAB." SECURITY STAYS WITH PATIENT UNTIL CAB ARRIVES TO ASSIST HIM SAFELY INTO THE RIDE.
--- NOTE | 2020-11-21 06:03 | NUR ---
IN TO CHECK ON PT, HE HAD GOTTEN UP AND DRESSED AND ASKED FOR A CAB TO BE CALLED. EXPLAINED TO PT IMPORTANCE OF MEDICAL TREATMENT HE IS RECEIVING, NEED FOR OXYGEN AND IVF. PT CONT TO REFUSE TREATMENT, SAYING "NO THANK YOU, JUST CALL ME A CAB.". NURSING INCLUSION SPECIALIST IN DEPARTMENT AND ESCORTED PT OUT TO FRONT OF BUILDING. DR BRIONES CALLED NOTIFIED. LEFT MESSAGE FOR PERSON TO NOTIFY IN CHART.
--- NOTE | 2020-11-21 07:50 | NUR ---
TALKED WITH NEXT OF KIN EDMOND HERNANDEZ WHO CALLED WITH QUESTIONS REGARDING PTS STATUS AND SITUATION. ENCOURAGED HIM TO KEEP A CLOSE EYE ON PT, RESP STATUS AND HELP HIM GET AN APPOITMENT FOR FOLLOW UP WITH DOCTOR ANALI AND HE STATES HE WILL.
--- NOTE | 2020-11-26 07:26 | DS ---
[facility] [address], [place] [address] Signed ADMISSION DATE: 11/18/2020 DISCHARGE DATE: 11/21/2020 FINAL DIAGNOSES: 1. Perforated duodenal ulcer. 2. Mild transient ischemic attack. 3. Collapse left lower lobe. 4. Rib fractures left, 2 and 4. PROCEDURES: 1. Primary repair and Hua patch of perforated duodenal ulcer. 2. Brief intraoperative CPR. 3. Multiple x-rays. 4. CT scan of the chest, abdomen, and pelvis. HISTORY OF PRESENT ILLNESS: Jose is an 80-year-old gentleman, who apparently has been for many years. He has not talked to his children in decades. 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 He has one friend apparently that lives next door. He had developed rather significant abrupt chest pain around 7:00 p.m. after eating. He came to the emergency room for evaluation. His initial cardiac evaluation was unremarkable but there was free air under the diaphragm. A CT scan confirmed the inflammatory changes around the duodenum and anterior stomach with significant air in the abdomen. I have been asked to admit him as a general surgeon on-call. HOSPITAL COURSE: Jose was taken emergently from the ER over into the operating room. He underwent a midline laparotomy and primary repair and Hua patch of his perforated duodenal ulcer. He had enormous amount of gastric contents out in his abdomen including the diaphragm in the pelvis. It took 5 L to wash all that out. He was having some abnormal heartbeats in the ER and his magnesium was low. That had been replaced before he went to surgery. His heart seemed to settle down. However, he had a short episode there of asystole during surgery towards the end. He had a few chest compressions with return of his heartbeat. Unfortunately, that did break his ribs 2 and 4. In recovery room, he said he was already feeling much better including the following morning. He continually asked to go outside to smoke and/or leave. I had to explain to him the seriousness of his situation multiple times. Despite his incentive spirometer and his albuterol, his O2 sats were dropping down to around 90% requiring 2 L nasal cannula. He had decreased breath sounds on the left. His initial chest x-ray after the CPR was unremarkable. The next one showed possibly a small pneumothorax out laterally, but none apically. The next morning, he had of his left lower lobe. We therefore sent him down for Electronically Signed By: YESSENIA BRIONES MD 11/26/20 0726 PATIENT NAME: JOSE QUINONES DISCHARGE SUMMARY DATE OF : 36 REPORT #: [id number] PHYSICIAN: YESSENIA BRIONES MD PCP: NO PRIMARY CARE PHYSICIAN REPORT IS CONFIDENTIAL AND NOT TO BE RELEASED WITHOUT AUTHORIZATION [facility] [address] [place] [id number] scan of the chest and he had collapse of that left lower lobe, but no pneumothorax. We had been using his incentive spirometer along with the chest physiotherapy. We added Mucomyst. We initially held off on any CPAP or BiPAP because of the concern for pneumothorax. We actually called around to several [facility] referral centers and talk to their fryer operator and director global market research who reviewed all this with us in detail. Each day, Jose was wanting to leave and to go outside to smoke and so forth. He had various reasons why he wanted to go outside including phone calls. He said he did not want to use the phone here at the hospital. When he was in the CT scanner, he said his left arm and his leg were weak and it was felt that he probably had a mild TIA. His symptoms resolved over a few hours. 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 He was therefore placed on baby aspirin at 81 mg p.o. daily. I had come on the morning of the and he had decided to leave AMA just before I got there. When the for his a.m. labs, he was unhappy with that and so he decided to leave. In fact he left with his drain in place, his trace in place and even left his dentures in the ICU. However, later that evening it sounds like his lung had opened up. He had coughed up quite a bit of phlegm and generally was doing better and ambulating around the hospital and so forth. In the meantime, he is actually called back to my office and we will be seeing him shortly to help him with his drain and so forth. DISCHARGE PLANS AND MEDICATIONS: Jose had left AMA and therefore has no proton pump inhibitor or aspirin on board. He still has his drain in place along with the trace. He had finally called the office and we will be having him back shortly in that regard. Hopefully, he will be more cooperative and we can follow up his TIA and his left lower lobe collapse. He needs to have a proton-pump inhibitor and his aspirin. If he will give a stool sample, we will check his H pylori antigen. Otherwise, hopefully he will let us do an upper endoscopy and we need to check to see if he is H pylori positive since he had a perforated ulcer. He had left AMA. Therefore, no final physical exam could be performed. MD ARLETTE Salas/SANDRAL /[id number] cc: Osvaldo Horta DO Electronically Signed By: YESSENIA BRIONES MD 11/26/20 0726 PATIENT NAME: JOSE QUINONES DISCHARGE SUMMARY DATE OF : 36 REPORT #: [id number] PHYSICIAN: YESSENIA BRIONES MD PCP: NO PRIMARY CARE PHYSICIAN REPORT IS CONFIDENTIAL AND NOT TO BE RELEASED WITHOUT AUTHORIZATION [address] [address] Signed Yessenia Briones MD Copies: OSVALDO HORTA ANDREW L MD ~ Electronically Signed By: YESSENIA BRIONES MD 11/26/20 0726 PATIENT NAME: JOSE QUINONES DISCHARGE SUMMARY DATE OF : 36 REPORT #: [id number] PHYSICIAN: YESSENIA BRIONES MD PCP: NO PRIMARY CARE PHYSICIAN REPORT IS CONFIDENTIAL AND NOT TO BE RELEASED WITHOUT AUTHORIZATION
== END 2020-11-21 05:55 | disposition left against medical advice (07) | DRG 329 ==
LOC: ED 19:59 → CCU 23:48
PROVIDERS: ADMIT Colon & Rectal Surgery; ATTEND Colon & Rectal Surgery
PROC: 0DU907Z Supplement Duodenum with Autologous Tissue Substitute, Open Approach (ICD-10-PCS; principal; 2020-11-18)
PROC: 5A12012 Performance of Cardiac Output, Single, Manual (ICD-10-PCS; 2020-11-18)
DX: K26.5 Chronic or unspecified duodenal ulcer with perforation (principal); J96.01 Acute respiratory failure with hypoxia; I42.9 Cardiomyopathy, unspecified; E87.2 Acidosis; I97.711 Intraoperative cardiac arrest during other surgery; J98.11 Atelectasis; G45.9 Transient cerebral ischemic attack, unspecified; M96.89 Other intraoperative and postprocedural complications and disorders of the musculoskeletal system; Z98.890 Other specified postprocedural states; E78.5 Hyperlipidemia, unspecified; Z79.899 Other long term (current) drug therapy; E83.42 Hypomagnesemia; I25.2 Old myocardial infarction; J44.9 Chronic obstructive pulmonary disease, unspecified; F17.210 Nicotine dependence, cigarettes, uncomplicated; E83.51 Hypocalcemia; I65.22 Occlusion and stenosis of left carotid artery; I11.0 Hypertensive heart disease with heart failure; E11.649 Type 2 diabetes mellitus with hypoglycemia without coma; Y84.8 Other medical procedures as the cause of abnormal reaction of the patient, or of later complication, without mention of misadventure at the time of the procedure
CPT/HCPCS: 00790; 70460; 70496; 70498; 71045; 71260; 71275; 74174; 80048; 80053; 80061; 83605; 83690; 83735; 84100; 84484; 85007; 85025; 85379; 87040; 93005; 93010; 93306; 94640; 94660; 94667; 94668; 99285-25; C9113; C9803; J0330; J0610; J0692; J1100; J1170; J1630; J1644; J1650; J1815; J1940; J2001; J2060; J2270; J2370; J2405; J2543; J2704; J3475; J7121; Q9967; U0003

== ENCOUNTER 2021-01-24 18:15 | Emergency (ER) | payer MEDICARE, OTHER ==
[~2021-01-24] VITALS: Ht 182.9 cm; Wt 85.5 kg
[~2021-01-24 18:15] MED LIST changes: +LISINOPRIL10 MG PO; +METFORMIN HCL500 M1 PO; +METOPROLOL SUCC25 MG PO
[2021-01-24] MEDS ORDERED: OMEPRAZOLE20 MG PO (19:12)
--- NOTE | 2021-01-25 17:07 | EKG ---
[facility] [address] [facility] [place], [place] [address] Signed Normal sinus rhythm Left axis deviation Left bundle branch block Abnormal ECG When compared with ECG of 17-NOV-2020 21:17, Previous ECG has undetermined rhythm, needs review Left bundle branch block is now present Confirmed by FAWAD GARNICA DO ([id number]) on 01/25/2021 5:07:01 PM Electronically Signed By: FAWAD GARNICA DO 01/25/21 1707 PATIENT NAME: JONITERRENCE Electrocardiogram DATE OF : 36 PHYSICIAN: FAWAD GARNICA DO REPORT #: [id number] REPORT IS CONFIDENTIAL AND NOT TO BE RELEASED WITHOUT AUTHORIZATION
== END 2021-01-24 19:56 | disposition left against medical advice (07) ==
LOC: ED 18:15
DX: Z53.21 Procedure and treatment not carried out due to patient leaving prior to being seen by health care provider (principal)
CPT/HCPCS: 71045; 93005; 93010

== ENCOUNTER 2021-09-30 09:18 | Emergency (ER) | payer MEDICARE, OTHER ==
[~2021-09-30] VITALS: Ht 182.9 cm; Wt 85.5 kg
[2021-09-30] MEDS ORDERED: SOAANZ20 MG PO (11:00)
[2021-09-30] MEDS ORDERED: K-TAB ER20 MEQ PO (11:00)
--- NOTE | 2021-09-30 20:24 | EKG ---
[facility] [address] [facility] [place] [address] Signed Normal sinus rhythm Left axis deviation Left bundle branch block Abnormal ECG When compared with ECG of 24-JAN-2021 19:02, No significant change was found Confirmed by SAIDA WRAY MD ([id number]) on 09/30/2021 8:24:01 PM Electronically Signed By: SAIDA WRAY MD 09/30/212023 PATIENT NAME: TERRENCE QUINONES Electrocardiogram DATE OF : 36 PHYSICIAN: SAIDA WRAY MD REPORT #: [id number] REPORT IS CONFIDENTIAL AND NOT TO BE RELEASED WITHOUT AUTHORIZATION
== END 2021-09-30 12:25 | disposition home or self-care (01) ==
LOC: ED 09:18
DX: I11.0 Hypertensive heart disease with heart failure (principal); I50.9 Heart failure, unspecified; I25.2 Old myocardial infarction; E11.9 Type 2 diabetes mellitus without complications; J44.9 Chronic obstructive pulmonary disease, unspecified; F17.200 Nicotine dependence, unspecified, uncomplicated; Z79.899 Other long term (current) drug therapy; Z79.84 Long term (current) use of oral hypoglycemic drugs
CPT/HCPCS: 36415; 71045; 80053; 83735; 83880; 85025; 93005; 93010; J1940

== ENCOUNTER 2021-10-05 09:00 | Inpatient (IN) | payer OTHER ==
[~2021-10-05] VITALS: Ht 182.9 cm; Wt 86.4 kg
[~2021-10-05 09:00] MED LIST changes: +K-TAB ER20 MEQ PO; +SOAANZ20 MG PO
--- OUTSIDE RECORDS SUMMARY | 2021-10-05 09:08 | XMS ---
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 Martínez has no Care Guidelines for this patient. E.D. VISIT COUNT (12 MO.) [address] TOTAL 5 NOTE: Visits indicate total known visits. ED/C VISIT TRACKING (12 MO.) 10/05/2021 09:01 [facility] [place] TYPE: Emergency COMPLAINT: - SWELLING 09/30/2021 09:18 [facility] [place] TYPE: Emergency COMPLAINT: - RETAINING WATER, UNABLE TO WALK DIAGNOSES: - Nicotine dependence, unspecified, uncomplicated - Heart failure, unspecified - Old myocardial infarction - Chronic obstructive pulmonary disease, unspecified - penitentiary (current) use of oral hypoglycemic drugs - Type 2 diabetes mellitus without complications - Other long term care pharmacist (current) drug therapy - Hypertensive heart disease with heart failure - Weakness 04/12/2021 10:30 [facility] TYPE: Emergency DIAGNOSES: - Nicotine dependence, unspecified, uncomplicated - Chest Tightness - Acute combined systolic (congestive) and diastolic (congestive) heart failure - Chronic combined systolic (congestive) and diastolic (congestive) heart failure 01/24/2021 18:15 [facility] [place] TYPE: Emergency COMPLAINT: - DIFFICULTY BREATHING DIAGNOSES: - Procedure and treatment not carried out due to patient leaving prior to being seen by health care provider 11/17/2020 19:59 [facility] [place] TYPE: Emergency COMPLAINT: - CHEST PAIN INPATIENT VISIT TRACKING (12 MO.) 04/12/2021 10:30 [facility] DIAGNOSES: - Nicotine dependence, unspecified, uncomplicated - Chronic combined systolic (congestive) and diastolic (congestive) heart failure - Acute combined systolic (congestive) and diastolic (congestive) heart failure - Heart failure, unspecified 11/17/2020 23:48 [facility] [place] TYPE: Critical Care COMPLAINT: - PERFORATED VISCUS DIAGNOSES: - Type 2 diabetes mellitus with hypoglycemia without coma - Old myocardial infarction - Occlusion and stenosis of left carotid artery - Old myocardial infarction - Hypomagnesemia - Other intraoperative and postprocedural complications and disorders of the musculoskeletal system - Other long term care pharmacist (current) drug therapy - Occlusion and stenosis of left carotid artery - Atelectasis - Hypomagnesemia - Other intraoperative and postprocedural complications and disorders of the musculoskeletal system - Hypertensive heart disease with heart failure - Acidosis - Nicotine dependence, cigarettes, uncomplicated - Other medical procedures as the cause of abnormal reaction of the patient, or of later complication, without mention of misadventure at the time of the procedure - Cardiomyopathy, unspecified - Other specified postprocedural states - Cardiomyopathy, unspecified - Hypocalcemia - Hypertensive heart disease with heart failure - Chronic or unspecified duodenal ulcer with perforation - Transient cerebral ischemic attack, unspecified - Acute respiratory failure with hypoxia - Nicotine dependence, cigarettes, uncomplicated - Other specified postprocedural states - Hyperlipidemia, unspecified - Intraoperative cardiac arrest during other surgery - Hyperlipidemia, unspecified - Transient cerebral ischemic attack, unspecified - Type 2 diabetes mellitus with hypoglycemia without coma - Other fpc (current) drug therapy - Chronic obstructive pulmonary disease, unspecified - Atelectasis - Other medical procedures as the cause of abnormal reaction of the patient, or of later complication, without mention of misadventure at the time of the procedure - Hypocalcemia - Acute respiratory failure with hypoxia - Chronic obstructive pulmonary disease, unspecified - Intraoperative cardiac arrest during other surgery - Acidosis [email or web address]
--- NOTE | 2021-10-05 15:19 | NUR ---
ADMISSION ASSESSMENT COMPLETED. PT ALERT AND ORIENTED ANSWERING QUESTIONS APPROPRIATELY. PT ON 3 L NC SPO2 =93%, HR IN THE 130-140S AT REST. BLOOD PRESSURES LOWER THAN REPORTED IN THE ER. PT DENIES PAIN AT THIS TIME. EDEMA IN BILATERAL EXTREMITIES, FROM FEET UP TO WAIST. GENERALIZED EDEMA ALSO NOTED IN ABDOMEN AND SCROTUM. PT HAS SEVERL WOUNDS, SKIN TEARS ON LEGS. PHOTOS IN THE PT'S CHART. VERBAL CONSNET OBTAINED. IV MEDICATIONS GIVEN (SEE EMAR). DR PALACIOS UPDATED ON PTS HEART RATE AND ASSESSMENT FINDINGS. WILL CONTINUE TO CLOSELY MONITOR.
--- NOTE | 2021-10-05 17:03 | NUR ---
CBG 146, 1 UNIT OF INSULIN PROVIDED PER ORDER. PT ATE 100% OF DINNER. NO OTHER NEEDS AT THIS TIME. CALL LIGHT IN REACH.
--- NOTE | 2021-10-05 17:15 | NUR ---
DR PALACIOS UPDATED ON PT HEART RATE. ORDERS RECIEVED (SEE EMAR).
--- NOTE | 2021-10-05 17:27 | NUR ---
SCHEDULED MED PROVIDED. IV FLUSHED, CDI. NO OTHER NEEDS AT THIS TIME. CALL LIGHT IN REACH.
--- NOTE | 2021-10-05 20:40 | NUR ---
PT RESTING IN BED ALERT AND ORIENTED X4 AT THIS TIME ON 3L O2 NC. PT NOTED TO BE FORGETFUL AT TIMES WHEN ANSWERING QUESTIONS BUT FOLLOWS DIRECTIONS. VITALS TAKEN AT THIS TIME AND SCHEDULED MEDICATIONS ADMINISTERED (SEE MAR). ASSESSMENT THEN COMPLETED. PT HEART RATE TACHYCARDIC BUT REGULAR, PT DENIES SHORTNESS OF BREATH. LUNGS CLEAR IN UPPER LEFT LOBE, DIMINISHED IN THE LEFT BASE. RUB HEARD ON PT'S RIGHT LOBE. PT TITRATED DOWN TO 2L O2 NC AT THIS TIME, SPO2 MAINTIANING AT 95-100%. ABDOMEN MILDLY DISTENDED, NONTENDER, PT REPORTS SIZE IS NORMAL. EDEMA PRESENT IN LOWER EXTREMITIES BILATERALLY, SKIN TEAR NOTED ON RIGHT LATERAL JOHN/ANKLE, REDNESS PRESENT IN RINKU AREA WHICH HAD DESITIN APPLIED. PT PROVIDED WITH SUGAR FREE SNACKS PER HIS REQUEST. CONDOM CATHETER IN PLACE AND DRAINING CLEAR YELLOW URINE, PT REPORTS NO NEEDS AFTER BEING REPOSITIONED, AND IS NOW EATING HIS SNACKS. CALL LIGHT IN REACH, BED IN LOWEST POSITION, WILL CONTINUE PLAN OF CARE.
--- NOTE | 2021-10-05 21:15 | NUR ---
PT AWAKE IN BED ON 2L O2 NC. PT REQUESTED MORE SNACKS, SUGAR FREE JELLO PROVIDED. PT REPORTS NO FURTHER ENEDS, CONDOM CATHETER DRAINING, WILL CONTINUE PLAN OF CARE. CALL LIGHT IN REACH.
--- NOTE | 2021-10-05 22:25 | NUR ---
PT LAYING IN BED SLEEPING AT THIS TIME AND AWOKE EASILY. ECG LEADS REPLACED AT THIS TIME. PT REPORTS NO NEEDS WHEN ASKED AND RETURNED BACK TO SLEEP, WILL CONTINUE PLAN OF CARE.
--- NOTE | 2021-10-06 00:02 | NUR ---
PT USED CALL LIGHT, PT RESTING IN BED AWAKE AND ALERT AT THIS TIME. PT REQUESTED WARM BLANKETS. WARM BLANKETS APPLIED AT THIS TIME. VITALS AND ASSESSMENT THEN COMPLETED (SEE CHART). PT DENIES SHORTNESS OF BREATH AT THIS TIME OR PAIN AND REPORTED NO FURTHER NEEDS WHEN ASKED. CONDOM CATHETER STILL IN PLACE AND DRAINING CLEAR YELLOW URINE. WILL CONTINUE PLAN OF CARE. CALL LIGHT IN REACH, BED IN LOWEST POSITION.
--- NOTE | 2021-10-06 02:45 | NUR ---
PT REMAINS RESTING IN BED AWAKE AND ALERT ON 2L O2 NC. SCHEDULED IV MEDICATION ADMINISTERED (SEE MAR). PT NOTED TO BE INCONTINENT OF STOOL, PERICARE DONE. PT THEN OFFERED TO SIT AT THE BEDSIDE RECLINER. PT ASSISTED TO THE BEDSIDE RECLINER 1 PERSON ASSIST. CONDOM CATHETER INTACT AND DRAINING. PT REPORTS NO FURTHER NEEDS AT THIS TIME. CALL LIGHT IN REACH, WILL CONTINUE PLAN OF CARE.
--- NOTE | 2021-10-06 04:05 | NUR ---
PT REMAINS SITTING AT THE BEDSIDE RECLINER AWAKE AND ALERT. ECG LEADS REPLACED AT THSI TIME. VITALS THEN TAKEN AND PT ASSESSED (SEE CHART). PT DENIES SHORTNESS OF BREATH WHEN ASKED AND IS NOW ON ROOM AIR. LUNGS COARSE IN UPPER LOBES AND DIMINSHED IN THE BASES BILATERALLY. PT REMAINS RESTING IN BED AND REPORTS NO FURTHER NEEDS. WILL CONTINUE PLAN OF CARE. CALL LIGHT IN REACH.
--- NOTE | 2021-10-06 06:40 | NUR ---
PT REMAINS RESTING AT THE BEDSIDE RECLINER ON ROOM AIR AWAKE. PT PROVIDED WITH ICE WATER AND COFFEE PER HIS REQUEST. PT REPORTS NO FURTHER NEEDS. OUTPUT ACCOUNTED FOR FROM CONDOM CATHETER. WILL CONTINUE PLAN OF CARE. CALL LIGHT IN REACH.
--- NOTE | 2021-10-06 07:00 | NUR ---
CALL LIGHT USED BY PT. PT REPORTS HAVING BACK PAIN 11/26 AND REQUESTED PRN PAIN MEDICATION. PRN TYLENOL ADMINISTERED AT THIS TIME. PT REPORTS NO FURTHER NEEDS WHEN ASKED AND REMAINS RESTING IN THE BEDSID RECLINER ON ROOM AIR. WILL CONTINUE PLAN OF CARE.
--- NOTE | 2021-10-06 07:30 | NUR ---
REPORT RECIEVED. PATIENT IS SITTING IN CHAIR. STATES HIS TAIL BONE IS HURTING. PATIENT SAID HIS TAIL BONE HAS BEEN HURTING SINCE HE HAD AN ACCIDENT A FEW WEEKS AGO. IS TALKATIVE AN IN GOOD SPIRITS.
--- NOTE | 2021-10-06 07:54 | NUR ---
CBG 153, 1 UNIT INSULIN PROVIDED.VS COMPLETED. SCHEDULED MED PROVIDED. BREAKFAST PROVIDED. NO OTHER NEEDS. CALL LIGHT IN REACH.
[2021-10-06] MEDS ORDERED: ENTRESTO 24 MG1 EACH PO (08:02)
--- NOTE | 2021-10-06 08:33 | NUR ---
ASSESSMENT COMPLETED. GCS 15, A&O X4. IV WNL, CDI, SALINE LOCKED. LUNGS CLEAR IN UPPER LOBES AND EXPIRATORY WHEEZING IN LOWER LOBES. ABD FIRM, MODERATELY DISTENDED, BOWEL TONES ACTIVE. PT REPORTS CMS INTACT IN UPPER EXTREMITIES AND NUMBNESS AND TINGLING IN LOWER EXTREMITIES. 2+ BLE. SKIN IS FRAGILE WITH VARIOUS WOUNDS COVERED WITH ALLEVYN, SEE WOUND ASSESSMENT FOR DETAILS. SWELLING IN TESTICLES NOTED. RODRIGUEZ WNL WITH 425ML OUTPUT THAT WAS CLEAR AND YELLOW. PT REQUESTS ADDITIONAL FOOD, PROVIDED. NO OTHER NEEDS AT THIS TIME. CALL LIGHT IN REACH. PT UP IN CHAIR.
--- NOTE | 2021-10-06 10:36 | NUR ---
CONTINUES TO SIT IN CHAIR. DENIES SHORTNESS OF BREATH OR PAIN. TALKATIVE
--- NOTE | 2021-10-06 12:00 | NUR ---
ASSESSMENT UNCHANGED. SITTING IN CHAIR EATING LUNCH. DENIES PAIN/NAUSEA, ABD IS DISTENDED AND FIRM, PATIENT STATES THIS IS NORMAL FOR HIM. SL RAC INTACT. ACCUCHECK-115 NO INSULIN GIVEN. CONDOM CATH INTACT.
--- NOTE | 2021-10-06 12:30 | NUR ---
DR. PALACIOS HERE TO SEE PATIENT. ORDERS TO TRANSFER TO MED-SURG RECIEVED. IS ON RA, SAT 97-100 WHEN ABLE TO PICK IT UP.
--- NOTE | 2021-10-06 15:00 | NUR ---
REPORT RECEIVED FROM CCU RN AND PT. ARRIVED VIA CHAIR. VITALS TAKEN BY ARTISTIC ASSOCIATE. PT. ABLE TO STAND WITH FWW TO DRESS ABRASION IN GLUTEAL FOLD. ARTISTIC ASSOCIATE DRESSED LEGS.
--- NOTE | 2021-10-06 15:02 | NUR ---
PT ARRIVED TO FLOOR VIA CHAIR. PT ORIENTED TO ROOM. VITALS TAKEN AND STABLE. CALL LIGHT IN REACH. APPLIED ALLEVYN TO LEFT GLUTEAL FOLD FOR STAGE 2 PRESSURE ULCER. LEGS ELEVATED. COFFEE PROVIDED.
--- NOTE | 2021-10-06 15:54 | EKG ---
[facility] [address] [place] [address] Signed Sinus rhythm with short RI Left axis deviation Left bundle branch block Abnormal ECG When compared with ECG of 30-SEP-2021 09:31, No significant change was found Confirmed by MAGED PALACIOS MD ([id number]) on 10/06/2021 3:54:35 PM Electronically Signed By: MGAED PALACIOS MD 10/06/21 1554 PATIENT NAME: TERRENCE QUINONES Electrocardiogram DATE OF : 36 PHYSICIAN: MAGED PALACIOS MD REPORT #: [id number] REPORT IS CONFIDENTIAL AND NOT TO BE RELEASED WITHOUT AUTHORIZATION
--- NOTE | 2021-10-06 16:11 | NUR ---
Met with Jose and discussed his current living situation. He lives alone in a mobil home. Let him know his nurse called and was very con cerned about his inability to care for himself, yesterday. She made APS referral. Today I received a call from [facility] skilled nursing case manager, Yin. She states due to his unsafe living and caring for self, his cert ends Sunday and they will be discharging him. 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 He has a very good relationship with Nuzhat his nurse. He states he understands why they won't come in, but he does not agree. I asked if he is able to get out of his chair for food and water and he states at time he cannot. Nuzhat also stated his wounds at times have had maggots and pt is unable to shower self. He states he drives himself and his 50 yo neighbor to the store. She gets him a motorized cart and they grocery shop together. He states the [place] sent two people to speak with him about caregivers and he sent them away as he does not like people he doesn't know in his home. He is very personable and states,"I just never thought I would live this long" He is now willing to [facility] with the [facility] again, he does not want any help contacting [facility] Aging and Disability for a state paid career placement specialist. He states his neighbor will assist him and he will pay her. I attempted to contact the [place] and had to leave a message. Will cont. to work with this pt for a safe discharge. Will attempt to contact the [place] tomorrow.
--- NOTE | 2021-10-06 16:37 | NUR ---
Received a call from Reva from the [place]. She states she reviewed pts chart and he does not have pcp there. He has benefits available and would need to call enrollment tomorrow and establish with a pcp through the [place]. He could then do a telehealth appt as he cannot get to [facility] due to his deconditioning at this time. Will assist him to call the [facility] [phone] tomorrow.
--- NOTE | 2021-10-06 17:44 | NUR ---
PT. IV LEAKING BLOOD ON GOWN WHILE FLUSHING. CLAM DIGGER IN THE ROOM AND WILL PLACE ANOTHER IV.
--- NOTE | 2021-10-06 19:43 | NUR ---
Was onc kuldeep at beginng of shift, back to bed heavy 1pa/fww to bed, sob eith exertion noted, required several cues. after getting a neb tx he tried to stand edge of bed, unsteady gait, voided using urinal, back to bed after several cues. slightly irritable mood at this time, redirectable. hob elevated and fob elevated. edema generalized, scabbed over areas over L thigh and le healing, 2 sl patent. tolertaing fluid restriction
--- NOTE | 2021-10-06 20:14 | NUR ---
PT ROOM AIR, MOIST PRODUCTIVE COUGH LUNGS DIM AND FINE CRACKLES, MORE COMOFRTABLE AND PLEASANT NOW. SL LFA, MULTIPLE SCABBED AREAS OVER ARMS AND LEGS, OPEN AREA L HIP, EDEMA TO LE AND HANDS. BUTTOCKS AND l ELBOW ALLEVYN SCDS IN PLACE, CBG 173, RECEIVED 1 UNTI SS INSULIN. USING URINAL, POOR RINKU CARE, LOTION APPLIED
--- NOTE | 2021-10-06 22:28 | NUR ---
Using urinal, voiding frequent small amoun ts of yellow urine, comfused at times r/t hoe to use urinal, alert to self, situation and place but not date or as described above. redirected, pleasant, bed alrm on, attends in place
--- NOTE | 2021-10-07 00:43 | NUR ---
WILKS NOTIFIED OF PTS BP OF 93/53 . BP TAKEN EARLIER ON SHIFT, PT ASYMPTOMATIC, NO NEW ORDERS
--- NOTE | 2021-10-07 01:40 | NUR ---
resting, no distress, on 5LNC, hob elevated, legs elevated. bed alrm on.
--- NOTE | 2021-10-07 02:52 | NUR ---
lopressor held again. pt cooperative with assessment, on room air, moist non productive cough present, call light at hands reach, tolerating fluid restriction. urinal at hands reach, bed alamr on
--- NOTE | 2021-10-07 04:17 | NUR ---
DR PALACIOS NOTIFIED EARLIER OF LOW BP AND 1999 AND 0200 PO METOPROLOL HELD NO NEW ORDERS AT THAT TIME. PT ON ROOM AIR, COOP WITH ASSESSMENT, [place], FORGETFUL, WAS IRRITABLE AT BEGINING OF SHIFT, REDIRECTABLE, REQUIRES SEVERAL CUES, AND EXPLANATION OF ALL PROCEDURES. CLEAR SPEECH.MULTIPLE BRUISED AND SCABBED OVER AREAS OVER ARMS, CHEST, BACK AND LE. SOME ARE OPEN TO AIR, RED CENTER, CLEAR FLUID DRAINIG ARMS AND LEGS, ALLEVYN TO L ARM, BUTTOCKS AND L LATERAL OUTER THIGH. EDEMA DN VASCULAR DICOLORATION OF LE, 2+ EDEMA. SCROTUM AND PENILE SHAFT EDEMATOUS AND RED, DESITING LOTION APPLIED. USES URINAL, WAS INCONTINENT OF URINE, BEDDING AND GOWN CHANGED. HELPED WITH TURNING AND REPOSITIONING. TOLERATING FLUID RESTRICTION. USES CALL LIGHT OFF AND ON. SCDS IN PLACE, BED ALRM ON, FALL RESTRICTION ON, HEAVY 1-2/FWW PA TRANSFER
--- NOTE | 2021-10-07 04:25 | NUR ---
DR PALACIOS NOTIFIED EARLIER OF LOW BP AND 1999 AND 0200 PO METOPROLOL HELD NO NEW ORDERS AT THAT TIME. PT ON ROOM AIR, COOP WITH ASSESSMENT, [place], FORGETFUL, WAS IRRITABLE AT BEGINING OF SHIFT, REDIRECTABLE, REQUIRES SEVERAL CUES, AND EXPLANATION OF ALL PROCEDURES. CLEAR SPEECH.MULTIPLE BRUISED AND SCABBED OVER AREAS OVER ARMS, CHEST, BACK AND LE. SOME ARE OPEN TO AIR, RED CENTER, CLEAR FLUID DRAINIG ARMS AND LEGS, ALLEVYN TO L ARM, BUTTOCKS AND L LATERAL OUTER THIGH. EDEMA DN VASCULAR DICOLORATION OF LE, 2+ EDEMA. SCROTUM AND PENILE SHAFT EDEMATOUS AND RED, DESITING LOTION APPLIED. USES URINAL, WAS INCONTINENT OF URINE, BEDDING AND GOWN CHANGED. HELPED WITH TURNING AND REPOSITIONING. TOLERATING FLUID RESTRICTION. USES CALL LIGHT OFF AND ON. SCDS IN PLACE, BED ALRM ON, FALL RESTRICTION ON, HEAVY 1-2/FWW PA TRANSFER
--- NOTE | 2021-10-07 07:54 | NUR ---
PT UP ON EDGE OF BED AND WAVES TO THIS RN FOR HELP. PT ASSISTED WITH CLEANING UP HIS BEDSIDE TABLE. 1 PERSON ASSIST PIVOT UP TO CHAIR. CHAIR ALARM PLACED. PT REPORTS HE IS WAITING FOR BREAKFAST AND EXPRESSES GREATFULNESS FOR CARES. NO ADDITIONAL REQUESTS OR COMPLAINTS. CALL LIGHT WITHIN REACH. CHAIR ALARM ON.
--- NOTE | 2021-10-07 09:00 | NUR ---
REPORT RECEIVED FROM NIGHT RN AND PT. CARE RESUMED. PT. IS ALERT AND ORIENTED TO ALL BUT DAY. HE DENIES PAIN. ASSESSMENT COMPLETED. PT. UP IN THE CHAIR. WHEEZES PRESENT IN UPPER LOBES OF LUNGS. COARSE IN THE BASES. PT. EDUCATED ON HEART FAILURE AND DIET. HE STATES HE HAS LIVED ALONE SINCE AND HAS A HARD TIME CARING FOR HIMSELF. PT. STATES "THIS IS THE DIRTIEST SOHAN EVER BEEN. I LOVE TO TALK AND I HAVE NO ONE TO TALK TO". LEGS AND ABDOMEN CONTINUE TO BE TIGHT WITH GENERALIZED EDEMA. ABRASIONS AND SKIN TEARS SCATTERED. LEGS ELEVATED WITH SCDS IN PLACE. LEFT RESTING WITH CALL LIGHT IN REACH.
--- NOTE | 2021-10-07 09:00 | NUR ---
Spoke with Ed and let him know to get programs through the [facility] he needs to have a pcp and needs to enroll and I can assist. Called the VA and spoke with enrollment. Pt was enrolled and they will call him next week to set up an apt.
--- NOTE | 2021-10-07 09:20 | NUR ---
Called and spoke with Abi from [facility]. Updated [facility] will be discharging pt on Sat. I have assisted pt to contact the enrollment center and they will call him between Sun and Sun of next week to set up a telephone appt to establish care with a pcp through the [facility].
--- NOTE | 2021-10-07 09:53 | NUR ---
VERBAL ORDERS FROM DR PALACIOS TO NOTIFY HIM REGARDING LOW BLOOD PRESSURES ONLY IF PT IS SYMPTOMATIC. DR. PALACIOS ALSO STATES HE WOULD LIKE A CALL BEFORE LASIX IS HELD. ORDERS ENTERED.
--- NOTE | 2021-10-07 12:27 | NUR ---
PT ALERT, ORIENTED AND ANSWERS VERY MATTER OF FACTLY. PT ABLE TO JOKE WITH BRITTNEY WILLIS IN TO TAKE BS AND VSS. PT DECLINED PRAYER, SAID HE HAD PRAYED THIS AM ALREADY AND WAS COVERED. GAVE BLESSING AND WILL FOLLOW
--- NOTE | 2021-10-07 15:00 | NUR ---
Following email sent to Alma BASSETT, [facility] Attachments 2:59 PM (0 minutes ago) to Alma Cerrato for CH[facility] I was notified on 10/05/21 by pts [facility] RN, Nuzhat, pt is living in terrible conditions. He had maggots in his wounds and was so weak he was unable to get up and get food or water. She made an APS referral. The next day her consumer marketing manager called and stated his cert period for HH ends on Sunday and they will be discharging as they cannot remain, knowing he is living in such a terrible state and will not agree to any help. He declines help or placement. I assisted him today to enroll with the [facility] for a PCP at the [facility] so he can access their programs. They will call him next week for a phone assessment. Pt will likely discharge home next week. I have included his face sheet and chart in the attachment. Thanks.
--- NOTE | 2021-10-07 15:21 | NUR ---
ROUNDING ON PT. HE IS UP IN THE CHAIR. DENIES PAIN. BROUGHT DIET SODA. HE IS COMPLIANT WITH FLUID RESTRICTION. LEFT RESTING WITH CUONG LIGHT IN REACH.
--- NOTE | 2021-10-07 19:05 | NUR ---
SHIFT REPORT RECEIVED FROM DAYSHIFT JEFFERSON BARRERA AT BEDSIDE. pt AWAKE AND RESTING IN CHIAR, PILLOW PROVIDED UNDER BUTTOCKS FOR COMFORT AND CHAIR ALARM IN PLACE. URINAL AND PERSONAL BELONGINGS IN REACH ALONG WITH CALL LIGHT, SET UP MECHANIC COATING MACHINES BECKY NOW IN ROOM TO ASSIST WITH URINAL FOR VOID. BOARD UPDATED. SPO2 LOW 90'S ON RA, HR 60'S.
--- NOTE | 2021-10-07 19:22 | NUR ---
PT USED URINAL, HE SPILT URINE ON HIS DEPENDS AND GOWN, PT ASSISTED TO CHANGE DEPENDS AND GOWN WELL CLEANED WITH WASH CLOTHS.
--- NOTE | 2021-10-07 20:25 | NUR ---
PT PROVIDED EXTRA PILLOWS AND REARRANGED IN THE RECLINER, ACCU CHECK DONE BS 107, NO INSULIN NEEDED, 200ML FREE WATER PROVIDED, ASSISTED WITH TURNING TV ON, PROVIDED WARM BLANKET AND PLACED CALL LIGHT NEXT TO PT HAND. NO FURTHER NEEDS AT THIS TIME, PRIMARY RN URIEL WILL BE IN TO DO ASSESSMENT.
--- NOTE | 2021-10-07 20:50 | NUR ---
assessment complete, scheduled meds given (see emar). pt awake and resting in chair, chair alarm on for safety. ble elvated, scattered scabs/brusies/abrasions, and skin tears noted. pt states, "i fall a lot at home". pt educated on use of call light and pt verbalized understanding. allevyn noted to left elbow and to inner buttocks, will monitor. pt wishes to sleep in chair, educated to change positions every couple hours or more frequently to prevent skin breakdown, pt verbalized understanding. a/ox4 at this time, call light in reach.
--- NOTE | 2021-10-07 23:15 | NUR ---
PT WOULD LIKE TO MOVE TO THE BED FORM CHAIR, RN IN TO CHECK WOUND DRESSINGS, THIS MORTGAGE ORIGINATOR ASSISTED WITH CARES, BED ALARM IN PLACE, NO FURTHER NEEDS AT THIS TIME
--- NOTE | 2021-10-07 23:30 | NUR ---
CALL LIGHT ANSWERED, pt UP SBA WITH FWW FROM CHAIR TO BED. RINKU CARE COMPLETED AND NEW PHOTOS TO BUTTOCKS/COCCYX NOTED, PHOTO CONSENT OBTAINED AND NEW ALLEVYNS IN PLACE. SKIN CLEANED WITH WOUND CLEANSER. CENTREX RADIO OPERATOR BECKY TO PLACE NIO FOR DAT INSTRUCTOR CONSULT. BED ALARM RESUMED, CALL LIGHT IN REACH.
--- NOTE | 2021-10-08 02:29 | NUR ---
pt RESTING ON HIS BACK, BED ALARM ON AND CALL LIGHT IN REACH. NO DISTRESS NOTED, ON RA. RR EVEN AND UNLABORED. WILL CONTINUE TO MONITOR FOR CHANGES.
--- NOTE | 2021-10-08 02:55 | NUR ---
ROUNDED ON pt, pt RESTING QUIETLY IN BED. DENIED NEED FOR PAIN AND NAUSEA MEDICATION. DENIES SOB, LIGHT WHEEZES NOTED IN BILATERAL UPPER LOBES. pt DENIES NEED FOR PRN BREATHING TREATMENT. pt REPOSITIONED IN BED, PILLOW FOR ADDITIONAL COMFORT. BED ALARM ON AND CALL LIGHT IN REACH. ASSESSMENT COMPELTE, NO ACUTE CHANGES. PILLOWCASE SLING TO SCROTUM/PENIS D/T GENERALIZED EDEMA.
--- NOTE | 2021-10-08 06:18 | NUR ---
ROUNDED ON pt, pt PLACED ON 1LNC, SPO2 NOW IN LOW 90'S. ASSISTED BACK TO BED, BED ALARM RESUMED AND CALL LIGHT IN REACH. NO ADDITIOANL NEEDS, WILL MONITOR FOR CHANGES.
--- NOTE | 2021-10-08 08:10 | NUR ---
PATIENT UP IN CHAIR. ADLS COMPLETED, THE CHAIR ALARM IS ON, AND HAS NO OTHER NEEDS AT THIS TIME. CALL LIGHT WITHIN REACH.
--- NOTE | 2021-10-08 08:30 | NUR ---
REPORT RECEIVED FROM NIGHT RN AND PT. CARE RESUMED. PT IS ALERT AND ORIENTED. HE IS ANXIOUS ABOUT DC AND NOT GOING TO SENIOR LIVING. DRESSING ON RIGHT LATERAL LEG IS SATURATED. CLEANED AND REDRESSED WITH PETROLEUM GAUZE, KERLEX, AND SUNITA WRAP. LEFT UPPER ARM DRESSINGS ALSO REDRESSED. PHOTOS PLACED IN CHART. ASSESSMENT COMPLETED. PT. ASSISTED WITH BREAKFAST. LEFT RESTING WITH CALL LIGTH IN REACH.
--- NOTE | 2021-10-08 11:09 | NUR ---
PT C/O DRY MOUTH AND REQUESTS WATER. DISCUSSED FLUID RESTRICTION. HE STATES HE UNDERSTANDS. GIVEN 100ML OF ICE CHIPS.
--- NOTE | 2021-10-08 17:52 | NUR ---
PT USED CALL LIGHT APPROPRIATELY FOR ASSISTANCE AFTER KNOCKING THINGS OFF TRAY. FLOOR CLEANED. PT. AMBULATED WITH 1PA AND FWW TO THE BED. GAIT IS UNSTEADY AND WEAK. PT. ASSISTED WITH URINAL. LEFT RESTING WITH CALL LIGHT IN REACH.
--- NOTE | 2021-10-08 18:55 | NUR ---
SHIFT REPORT RECEIVED FROM DAYSHIFT RN HOLLY AT BEDSIDE. pt AWAKE AND RESTING IN BED, BED ALARM TURNED ON FOR SAFETY. CALL LIGHT IN REACH. pt MAKES STATEMENTS AND JOKES REGARDING WANTING TO GO HOME, THERAPUETICCOMMUNICATION PROVIDED AND DISCUSSED POC WITH pt. BOARD UPDATED.
--- NOTE | 2021-10-08 21:47 | NUR ---
ASSESSMENT COMPLETE, pt DENIES PAIN AND NAUSEA. REPORTS FEELING CONGESTED. 1LNC IN PLACE, SPO2 NOW 90%. HOB ELEVATED FOR COMFORT. WOUND CARE DONE TO COCCYX/BUTTOCKS. SITES CLEANED WITH WOUND CLEANSER AND NEW AALEVYNS IN PLACE. SMEAR BM NOTED, pt REFUSED DESITIN. BED ALARM ON FOR SAFETY. CALL LIGHT IN REACH. NO NEW SHADOWING TO BLE WOUNDS SINCE START OF SHIFT, WILL MONITOR.
--- NOTE | 2021-10-08 23:29 | NUR ---
BED ALARM GOING OFF, JEFFERSON ASHTON ALREADY IN ROOM. UPON ENTERING ROOM, pt WAS ON 3LNC- PREVIOUSLY ON 1LNC. pt REPORTS SOB, RT BEVERLY ALREADY AWARE PER JEFFERSON ASHTON. pt REQUESTING "ROBUTUSSIN" D/T HARSH NONPRODUCTIVE COUGH, pt DECLINED EVENING DUONEB EARLIER IN SHIFT. DR WRAY MADE AWARE. TELEPHONE ORDERS READ BACK FOR 2QH DUONEBS 3MG-0.5MG/3ML PRN FOR SOB AND MELATONIN 3MG PO HS PRN. PER MD, NOTIFY HER IF O2 NEEDS CONTINUE TO INCREASE. PHARMACY ORDER ENTRY TECHNICIAN ALSO UPDATED.
--- NOTE | 2021-10-08 23:46 | NUR ---
pt APPEARING MORE RELAXED, 3LNC REMAINS IN PLACE FOR COMFORT. pt ALLOWED TO SIT ON EDGE OF BED, BED ALARM ON. DIET SPIRITE PROVIDED. LUNG SOUNDS CLEAR AT THIS TIME, DIMINISHED IN LOWER LOBES. FAINT WHEEZE IN RIGHT UPPER LOBE. pt RECENTLY GIVEN PRN BREATHING TREATMENT. PRN TYLENOL AND PRN MELATONIN ALSO PROVIDED. WILL CONITNUE TO MONITOR. CALL LIGHT IN REACH.
--- NOTE | 2021-10-09 00:11 | NUR ---
pt BACK IN BED, BOOSTED WITH HELP FROM ENTERPRISE RESOURCE ANALYST. BED ALARM ON AND CALL LIGHT IN REACH. 3LNC REMAINS IN PLACE.
--- NOTE | 2021-10-09 02:53 | NUR ---
pt RESTING QUIETLY IN BED WITH EYES CLOSED, ON 3LNC. RR EVEN AND UNLABORED. NO DISTRESS NOTED. BED ALARM REMAINS ON FOR SAFETY, CALL LIGHT IN REACH.
--- NOTE | 2021-10-09 05:12 | NUR ---
pt awake and resting in bed. vs and i&o's collected. sbp soft, but similar to current trends. 86/58, currently resting in bed-relaxed. 80mg po lasix ordered, discussed with near eastern archaeology lecturersupa terrell. pt asymptomatic regarding low blood pressure, po lasix given. will monitor, bed alarm on for safety. pt declined pillow under buttocks, no additional needs. assessment complete, no acute changes.
--- NOTE | 2021-10-09 07:30 | NUR ---
HELPED PT TO CHAIR. LINENS CHANGED. CHAIR ALARM SET. WARM WASH CLOTH GIVEN. CALL LIGHT WITHIN REACH. NO FURTHER NEEDS AT THIS TIME.
--- NOTE | 2021-10-09 07:39 | NUR ---
PT UP IN THE CHAIR AT TIME OF REPORT. WATCHING TV DENIES DISCOMFORTS OR NEEDS OF. FRESH H20 AND CALL LIGHT IN REACH.
--- NOTE | 2021-10-09 11:21 | NUR ---
PT UP TO THE BATHROOM TO DO PERSONAL CARES. SBA WITH FWW. RETURNS TO CHAIR NEEDED ITEMS IN REACH. P/T IN TO WORK WITH PT CURRENTLY
--- NOTE | 2021-10-09 13:30 | NUR ---
PT IN CHAIR. DIET SODA REFRESHED. CALL LIGHT IN REACH. NO FURTHER NEEDS AT THIS TIME.
--- NOTE | 2021-10-09 17:50 | NUR ---
PT CONTINUES UP IN THE CHAIR WATCHING TV. DENIES DISCOMFORTS OR NEEDS. NO C/O SOB THIS SHIFT WEARING 02. CALL LIGHT AND NEEDED ITEMS IN REACH. PT HAS USED THE URINAL ENTIRE SHIFT INDEPENDANTLY.
--- NOTE | 2021-10-09 19:06 | NUR ---
SHIFT REPORT RECEIVED FROM DAYSHIFT JEFFERSON SETHI AT BEDSIDE. pt AWAKE AND RESTING IN CHAIR, CALL LIGHT IN REACH. pt EDUCATED TO USE CALL LIGHT BEFORE GETTING UP. BLE WERE ALSO ELEVATED IN CHAIR. VARIOUS WOUND DRESSINGS IN PLACE TO BLE, YELLOW SHADOWING NOTED, WILL MONITOR. 3LNC IN PLACE.
--- NOTE | 2021-10-09 20:42 | NUR ---
pt WAVED THIS RN INTO ROOM AND WISHES TO GET UP AND STAND, STATES, "OH MY BACK HURTS AND I WANNA GET UP FOR A BIT'. pt UP FROM CHAIR SBA TO BEC, SOMEWHAT UNSTEADY ON FEET, RN REMAINS CLOSE IF ASSISTANCE IS REQUIRED. EGG CRATE TO BED FOR ADDITIONAL SUPPORT, pt REPORTS HELPFUL. RINKU CARE DONE AND FRESH ATTENDS IN PLACE, ALLEVYN TO INTERGLUTEAL CLEFT BINH C/D/I, WOUND NEAR SCROTUM CLEANED WITH WOUND CLEANSER AND NEW ALLEVYN IN PLACE. WOUND TO LOWER RIGHT LEG FULLY SATURATED AND LEAKING, WITH HELP FROM EBD TEACHER MELL WOUND CLEANED WITH WOUND CLEANSER AND ALGINATE DRESSING CUT TO BETTER FIT WOUND. ABD PAD THEN OVER TO PROTECT SKIN, OPSITE ALSO IN PLACE. SMALL INTACT FLUID BLISTERS NOTED TO BLE, ALLEVYN TO LEFT CALF AND LEFT ELBOW ALSO INTACT. WILL MONITOR. BLE ELEVATED IN BED. pt EDUCATED ON WOUND CARE AND POC FOR SHIFT. IV SITE WNL, FLUSHES EASILY. NO FURTHER NEEDS, CALL LIGHT INR EACH AND BED ALARM ON. ROOM TIDED.
--- NOTE | 2021-10-09 22:30 | NUR ---
pt RESTING IN BED, EYES CLOSED. 3LNC IN PLACE, BED ALARM ON AND CALL LIGHT IN REACH. BLE REMAINS ELEVATED IN BED, WILL MONITOR.
--- NOTE | 2021-10-10 01:23 | NUR ---
ROUNDED ON pt, pt DROPPED REMOTE. ASSISTANCE PROVIDED. ASSESSMENT COMPLETE, NO ACUTE CHANGES. BLE ELEVATED IN BED, SOME YELLOW SHADOWING NOTED TO LOWER LEFT LEG DRESSING, WILL MONITOR. CALL LIGHT IN REACH, BED ALARM ON.
--- NOTE | 2021-10-10 05:32 | NUR ---
PATIENT IS UP IN HTE CHAIR. CHAIR ALARM ON. PATIENT ASKED FOR RT. JEFFERSON DALE CALLED THE RT. RT CAME. CALL LIGHT IN REACH.
--- NOTE | 2021-10-10 05:46 | NUR ---
in room to round on pt, pt states, "i'm ready to go and pretty soon you're gonna see me walk out that door. i do what i want...if there's a fee, i pay it, and there's a consequence i figure it out". pt then states after a few minutes, "well i guess i'll wait until i see the doc". chair alarm on for safety, call light in reach. scheduled am meds given, see emar. diet soda also provided. will continue to monitor.
--- NOTE | 2021-10-10 06:30 | NUR ---
SPOKE TO DAYSURGERY RN LOKI VIA TELEPHONE REGARDING ALGINATE. OKAY TO PLACE OVER HEALTHY SKIN, CAN CUT TO FIT WOUND.
--- NOTE | 2021-10-10 07:41 | NUR ---
PT UP IN THE CHAIR AT TIME OF SHIFT REPORT, SBA TO THE BATHROOM RETURNS TO THE CHAIR. DENIES SOB OR OTHER DISCOMFORTS. PT STATES HE IS GOING HOME TODAY WITH OR WITHOUT MD APPROVAL. 02 SATS 95% ON ROOM AIR. CALL LIGHT AND NEEDED ITEMS IN REACH.
--- NOTE | 2021-10-10 08:30 | NUR ---
In and spoke with Ed. He is wanting to go home. I again offered placement until his legs heal. He states he has called his friend, Ming, he has paid her and she will be his in home caregiver. He denies any needs and is anxious to leave today. REminded him [facility] with [facility]. Once this is completed they will be able to help him with some home programs.
--- NOTE | 2021-10-10 09:11 | NUR ---
PATIENT IN CHAIR AT THIS TIME. VITALS AND I&O'S CHARTED. RN IN ROOM TO DO DRESSING CHANGE ON LEG. CALL LIGHT IN REACH. NO FURTHER NEEDS AT THIS TIME.
--- NOTE | 2021-10-10 10:05 | NUR ---
FRESH DRESSINGS TO WOUNDS ORDERED. DR WRAY IS TO SEE PT DC DISCUSSED AND ORDERED. PT IS VERY ANXIOUS TO LEAVE STATES HIS RIDE WILL BE HERE IN 30 MINUTES. F/U APPT MADE WITH DR MILNER EDUCATION PROVIDED FOR PT REGARDING NEED, UNDERSTANDING VERBALIZED. PT WORKING WITH P/T AT THIS TIME
--- NOTE | 2021-10-10 10:17 | NUR ---
Patient is ready to go home this morning. He is dressed, he feels that his care has been good. He has a friend coming to pick him up and states that he has another friend who will be helping him in his home as a care transitions manager. He denies any needs or concerns at this time.
== END 2021-10-10 10:35 | disposition home or self-care (01) | DRG 291 ==
LOC: ED 09:00 → CCU 14:25 → MS 10-06 12:46 → CCU 10-06 12:51 → MS 10-06 14:45
PROVIDERS: ADMIT Internal Medicine; ATTEND Internal Medicine
DX: I11.0 Hypertensive heart disease with heart failure (principal); I50.23 Acute on chronic systolic (congestive) heart failure; J96.02 Acute respiratory failure with hypercapnia; Q21.1 Atrial septal defect; I34.0 Nonrheumatic mitral (valve) insufficiency; Z20.822 Contact with and (suspected) exposure to COVID-19; E11.9 Type 2 diabetes mellitus without complications; D69.6 Thrombocytopenia, unspecified; J44.9 Chronic obstructive pulmonary disease, unspecified; J98.01 Acute bronchospasm; K21.9 Gastro-esophageal reflux disease without esophagitis; I50.82 Biventricular heart failure; I95.9 Hypotension, unspecified; F17.210 Nicotine dependence, cigarettes, uncomplicated; Z71.6 Tobacco abuse counseling; Z87.11 Personal history of peptic ulcer disease; Z91.14 Patient's other noncompliance with medication regimen; Z98.890 Other specified postprocedural states; Z79.899 Other long term (current) drug therapy
CPT/HCPCS: 36415; 71045; 80048; 80053; 82803; 83036; 83735; 83880; 84484; 85025; 87502; 93005; 93010; 93306; 94640; 94760; 96374; 97110; 97140; 97161; 97165; 99285-25; A9270; C9113; J1815; J1940; J2930; J3475; U0003

== ENCOUNTER 2021-10-10 11:52 | Emergency (ER) | payer MEDICARE, OTHER ==
[~2021-10-10] VITALS: Ht 182.9 cm; Wt 86.4 kg
[~2021-10-10 11:52] MED LIST changes: +ENTRESTO 24 MG1 EACH PO
--- OUTSIDE RECORDS SUMMARY | 2021-10-10 12:01 | XMS ---
PreManage Notification: TERRENCE QUINONES Security Fur Matcher Events 1 event(s) in the past 18 months Most recent security events: Elopement at [facility] 01/24/2021 18:15 - Other Details: PATIENT LWBS CRITERIA MET - [facility] - 2 Visits in 30 Days CARE PROVIDERS There are no care providers on record at this time. Martínez has no Care Guidelines for this patient. E.D. VISIT COUNT (12 MO.) [address] TOTAL 6 NOTE: Visits indicate total known visits. ED/C VISIT TRACKING (12 MO.) 10/10/2021 11:[address] [facility] TYPE: Emergency COMPLAINT: - WEAKNESS 10/05/2021 09:[address] [facility] TYPE: Emergency COMPLAINT: - SWELLING 09/30/2021 09:18 [facility] [place] TYPE: Emergency COMPLAINT: - RETAINING WATER, UNABLE TO WALK DIAGNOSES: - Nicotine dependence, unspecified, uncomplicated - Heart failure, unspecified - Old myocardial infarction - Chronic obstructive pulmonary disease, unspecified - USP (current) use of oral hypoglycemic drugs - Type 2 diabetes mellitus without complications - Other jail (current) drug therapy - Hypertensive heart disease with heart failure - Weakness 04/12/2021 10:30 [facility] TYPE: Emergency DIAGNOSES: - Nicotine [...] CHEST PAIN INPATIENT VISIT TRACKING (12 MO.) 10/05/2021 14:25 [facility] [place] TYPE: Medical Surgical COMPLAINT: - DECOMPENSATED HEART FAILURE 04/12/2021 10:30 [facility] TYPE: Internal Medicine DIAGNOSES: - Nicotine dependence, unspecified, uncomplicated - Chronic combined systolic (congestive) and diastolic (congestive) heart failure - Acute combined systolic (congestive) and diastolic (congestive) heart failure - Heart failure, unspecified 11/17/2020 23:48 [facility] TYPE: Critical Care COMPLAINT: - PERFORATED VISCUS DIAGNOSES: - Type 2 diabetes mellitus with hypoglycemia without coma - Old myocardial infarction - Occlusion and stenosis of left carotid artery - Old myocardial infarction - Hypomagnesemia - Other intraoperative and postprocedural complications and disorders of the musculoskeletal system - Other termite control service representative (current) drug therapy - Occlusion and stenosis [...] mellitus with hypoglycemia without coma - Other jail (current) drug therapy - Chronic obstructive pulmonary disease, unspecified - Atelectasis - Other medical procedures as the cause of abnormal reaction of the patient, or of later complication, without mention of misadventure at the time of the procedure - Hypocalcemia - Acute respiratory failure with hypoxia - Chronic obstructive pulmonary disease, unspecified - Intraoperative cardiac arrest during other surgery - Acidosis [email or web address]
--- NOTE | 2021-10-11 07:37 | EKG ---
[facility] [address] [place] [address] Signed Atrial flutter with variable AV block with premature ventricular or aberrantly conducted complexes Left axis deviation Minimal voltage criteria for LVH, may be normal variant ( Ulises product ) Inferior infarct , age undetermined Anterolateral infarct , age undetermined Abnormal ECG When compared with ECG of 05-OCT-2021 09:52, Significant changes have occurred Confirmed by SAIDA WRAY MD ([id number]) on 10/11/2021 7:37:10 AM Electronically Signed By: SAIDA WRAY MD 10/11/21 0737 PATIENT NAME: TERRENCE QUINONES Electrocardiogram DATE OF : 36 PHYSICIAN: SAIDA WRAY MD REPORT #: [id number] REPORT IS CONFIDENTIAL AND NOT TO BE RELEASED WITHOUT AUTHORIZATION
--- NOTE | 2021-10-11 07:37 | EKG ---
[facility] [address] [place] [address] Signed Normal sinus rhythm Left axis deviation Nonspecific intraventricular block Minimal voltage criteria for LVH, may be normal variant ( [place] product ) Inferior infarct (cited on or before 10-OCT-2021) Cannot rule out Anterior infarct (cited on or before 10-OCT-2021) T wave abnormality, consider lateral ischemia Abnormal ECG When compared with ECG of 10-OCT-2021 11:55, (Unconfirmed) Sinus rhythm has replaced Atrial flutter Vent. rate has decreased BY 87 BPM QRS duration has increased Confirmed by SAIDA WRAY MD ([id number]) on 10/11/2021 7:37:47 AM Electronically Signed By: SAIDA WRAY MD 10/11/21 0737 PATIENT NAME: TERRENCE QUINONES Electrocardiogram DATE OF : 36 PHYSICIAN: SAIDA WRAY MD REPORT #: [id number] REPORT IS CONFIDENTIAL AND NOT TO BE RELEASED WITHOUT AUTHORIZATION
== END 2021-10-10 22:49 | disposition short-term general hospital (02) ==
LOC: ED 11:52
DX: I48.92 Unspecified atrial flutter (principal); I11.0 Hypertensive heart disease with heart failure; I50.9 Heart failure, unspecified; E11.9 Type 2 diabetes mellitus without complications; J44.9 Chronic obstructive pulmonary disease, unspecified; I25.2 Old myocardial infarction; F17.200 Nicotine dependence, unspecified, uncomplicated; Z79.899 Other long term (current) drug therapy; Z20.822 Contact with and (suspected) exposure to COVID-19
CPT/HCPCS: 36415; 71045; 80048; 84484; 85025; 87502; 93005; 93010; C9803; J1940; J2704; U0003

== ENCOUNTER 2021-10-19 13:40 | Inpatient (IN) | payer MEDICARE, OTHER ==
[~2021-10-19] VITALS: Ht 182.9 cm; Wt 78.3 kg
--- OUTSIDE RECORDS SUMMARY | 2021-10-19 13:46 | XMS ---
PreManage Notification: TERRENCE QUINONES Security Wetland Scientist Events 1 event(s) in the past 18 months Most recent security events: Elopement at [facility] 01/24/2021 18:15 - Other Details: PATIENT LWBS CRITERIA MET - [facility] - 2 Visits in 30 Days CARE PROVIDERS There are no care providers on record at this time. Martínez has no Care Guidelines for this patient. E.D. VISIT COUNT (12 MO.) [address] TOTAL 7 NOTE: Visits indicate total known visits. ED/C VISIT TRACKING (12 MO.) 10/19/2021 13:40 [facility] [place] TYPE: Emergency COMPLAINT: - EXTREMITY PAIN/INJURY 10/10/2021 11:52 [facility] [place] TYPE: Emergency COMPLAINT: - WEAKNESS DIAGNOSES: - Unspecified atrial flutter - Type 2 diabetes mellitus without complications - Other snf (current) drug therapy - Nicotine dependence, unspecified, uncomplicated - Old myocardial infarction - Contact with and (suspected) exposure to COVID-19 - Syncope and collapse - Hypertensive heart disease with heart failure - Heart failure, unspecified - Chronic obstructive pulmonary disease, unspecified 10/05/2021 09:01 [facility] [place] TYPE: Emergency COMPLAINT: - SWELLING 09/30/2021 09:18 [facility] [place] TYPE: Emergency COMPLAINT: - RETAINING WATER, UNABLE TO WALK DIAGNOSES: - Nicotine dependence, unspecified, uncomplicated - Heart failure, unspecified - Old myocardial infarction - Chronic obstructive pulmonary disease, unspecified - residential (current) use of oral hypoglycemic drugs - Type 2 diabetes mellitus without complications - Other snf (current) drug therapy - Hypertensive heart disease with heart failure - Weakness 04/12/2021 10:30 [facility] TYPE: Emergency DIAGNOSES: - Nicotine dependence, unspecified, uncomplicated - Chest Tightness - Acute combined systolic (congestive) and diastolic (congestive) heart failure - Chronic combined systolic (congestive) and diastolic (congestive) heart failure 01/24/2021 18:15 [facility] TYPE: Emergency COMPLAINT: - DIFFICULTY BREATHING DIAGNOSES: - Procedure and treatment not carried out due to patient leaving prior to being seen by health care provider 11/17/2020 19:59 [facility] TYPE: Emergency COMPLAINT: - CHEST PAIN INPATIENT VISIT TRACKING (12 MO.) 10/10/2021 23:57 [facility] [place] TYPE: Medical Surgical COMPLAINT: - POLMONARY HYPOTENSION, MITRAL VALVE REGERGITION DIAGNOSES: 0. Paroxysmal atrial fibrillation 1. Paroxysmal atrial fibrillation 2. Acute on chronic systolic (congestive) heart failure 3. Acute respiratory failure with hypercapnia 4. Acute and chronic respiratory failure with hypoxia 5. Gastrointestinal hemorrhage, unspecified 6. Procedure and treatment not carried out because of patient's decision for other reasons 7. Hypertensive heart disease with heart failure 8. Chronic obstructive pulmonary disease, unspecified 9. Old myocardial infarction 10. Type 2 diabetes mellitus without complications 11. Dilated cardiomyopathy 12. Syncope and collapse 13. Abnormal coagulation profile 14. Abrasion, left foot, initial encounter 15. Exposure to other specified factors, initial encounter 16. Unspecified superficial injury of left lower leg, initial encounter 17. Unspecified superficial injury of left thigh, initial encounter 18. Unspecified superficial injury of left forearm, initial encounter 19. Unspecified superficial injury of right thigh, initial encounter 20. Other skin changes 21. Abrasion of left upper arm, initial encounter 22. Abrasion of left forearm, initial encounter 23. Other snf (current) drug therapy 24. Personal history of transient ischemic attack (TIA), and cerebral infarction without residual deficits 25. Personal history of nicotine dependence 26. Contact with and (suspected) exposure to COVID-19 10/05/2021 14:25 [facility] TYPE: Medical Surgical COMPLAINT: - DECOMPENSATED HEART FAILURE DIAGNOSES: - Thrombocytopenia, unspecified - Acute on chronic systolic (congestive) heart failure - Contact with and (suspected) exposure to COVID-19 - Nicotine dependence, cigarettes, uncomplicated - Chronic obstructive pulmonary disease, unspecified - Acute bronchospasm - Acute respiratory failure with hypercapnia - Nicotine dependence, cigarettes, uncomplicated - Type 2 diabetes mellitus without complications - Hypotension, unspecified - Patient's other noncompliance with medication regimen - Hypertensive heart disease with heart failure - Tobacco abuse counseling - Tobacco abuse counseling - Hypotension, unspecified - Acute on chronic systolic (congestive) heart failure - Contact with and (suspected) exposure to COVID-19 - Hypertensive heart disease with heart failure - Patient's other noncompliance with medication regimen - Biventricular heart failure - Type 2 diabetes mellitus without complications - Nonrheumatic mitral (valve) insufficiency - Chronic obstructive pulmonary disease, unspecified - Personal history of peptic ulcer disease - Other snf (current) drug therapy - Gastro-esophageal reflux disease without esophagitis - Other specified postprocedural states - Heart failure, unspecified - Atrial septal defect - Other specified postprocedural states - Personal history of peptic ulcer disease - Gastro-esophageal reflux disease without esophagitis - Acute bronchospasm - Nonrheumatic mitral (valve) insufficiency - Other snf (current) drug therapy - Thrombocytopenia, unspecified - Acute respiratory failure with hypercapnia - Biventricular heart failure - Atrial septal defect 04/12/2021 10:30 [facility] TYPE: Internal Medicine DIAGNOSES: - Nicotine dependence, unspecified, uncomplicated - Chronic combined systolic (congestive) and diastolic (congestive) heart failure - Acute combined systolic (congestive) and diastolic (congestive) heart failure - Heart failure, unspecified 11/17/2020 23:[address] [facility] [place] TYPE: Critical Care COMPLAINT: - PERFORATED VISCUS DIAGNOSES: - Type 2 diabetes mellitus with hypoglycemia without coma - Old myocardial infarction - Occlusion and stenosis of left carotid artery - Old myocardial infarction - Hypomagnesemia - Other intraoperative and postprocedural complications and disorders of the musculoskeletal system - Other snf (current) drug therapy - Occlusion and stenosis [...] mellitus with hypoglycemia without coma - Other snf (current) drug therapy - Chronic obstructive pulmonary disease, unspecified - Atelectasis - Other medical procedures as the cause of abnormal reaction of the patient, or of later complication, without mention of misadventure at the time of the procedure - Hypocalcemia - Acute respiratory failure with hypoxia - Chronic obstructive pulmonary disease, unspecified - Intraoperative cardiac arrest during other surgery - Acidosis [email or web address]
[2021-10-24] MEDS ORDERED: SOAANZ20 MG PO (13:07)
[2021-10-24] MEDS ORDERED: K-TAB ER20 MEQ PO (13:08)
[2021-10-24] MEDS ORDERED: METOPROLOL SUCC25 MG PO (13:09)
[2021-10-24] MEDS ORDERED: DOXYCYCLINE HY100 MG PO (13:12)
== END 2021-10-24 13:55 | disposition home or self-care (01) | DRG 291 ==
LOC: ED 13:40 → CCU 13:41
PROVIDERS: ADMIT Internal Medicine; ATTEND Internal Medicine
DX: I11.0 Hypertensive heart disease with heart failure (principal); I50.23 Acute on chronic systolic (congestive) heart failure; L03.115 Cellulitis of right lower limb; L03.116 Cellulitis of left lower limb; I34.0 Nonrheumatic mitral (valve) insufficiency; I87.2 Venous insufficiency (chronic) (peripheral); Z66 Do not resuscitate; I48.0 Paroxysmal atrial fibrillation; Z91.14 Patient's other noncompliance with medication regimen; D69.6 Thrombocytopenia, unspecified; E11.9 Type 2 diabetes mellitus without complications; J44.9 Chronic obstructive pulmonary disease, unspecified; F17.210 Nicotine dependence, cigarettes, uncomplicated; Z20.822 Contact with and (suspected) exposure to COVID-19; K21.9 Gastro-esophageal reflux disease without esophagitis; Z87.74 Personal history of (corrected) congenital malformations of heart and circulatory system; I25.2 Old myocardial infarction; Z98.890 Other specified postprocedural states; Z79.899 Other long term (current) drug therapy
CPT/HCPCS: 36415; 36600; 71045; 80048; 80053; 82803; 83735; 83880; 85025; 87502; 93005; 93010; 96365; 96368; 96376; 97116; 97161; 97166; 97530; 97535; 99285-25; A9270; J0690; J1940; J3370; J3475; J7060; U0003

== ENCOUNTER → 2022-02-22 | Emergency (ER) | payer MEDICARE, OTHER ==
[~2022-02-22] VITALS: Ht 182.9 cm; Wt 92.3 kg
[~2022-02-22] MED LIST changes: +CEPHALEXIN500 M1 PO; +DOXYCYCLINE HY100 MG PO; +LASIX20 MG PO
--- OUTSIDE RECORDS SUMMARY | 2022-02-22 10:28 | XMS ---
PreManage Notification: TERRENCE QUINONES Security Pay Station Attendant Events 1 event(s) in the past 18 months Most recent security events: Elopement at [facility] 01/24/2021 18:15 - Other Details: PATIENT LWBS CRITERIA MET - [facility] - Has Care Guidelines CARE PROVIDERS There are no care providers on record at this time. Martínez has no Care Guidelines for this patient. Care History Medical/Surgical 10/21/2021 [facility] Per Home Health from [facility] on 10/07/2021 - Referral for [facility] I was notified on by pts [facility] RN, Nuzhat, pt is living in terrible conditions. He had maggots in his wounds and was so weak he was unable to get up and get food or water.\T\nbsp;She made an APS referral. The next day her coding manager called and stated his cert period for HH ends on Sunday and they will be discharging as they cannot remain, knowing he is living in such a terrible state and will not agree to any help. He declines help or placement.\T\nbsp;I assisted him today [facility] so he can access their programs.\T\ nbsp;They will call him next week for a phone assessment. Pt will likely discharge home next week.\T\nbsp;I have included his face sheet and chart in the attachment.\T\nbsp;Thanks. 10/21/2021 - I left a voice msg with [facility] [place] to determine if they were able to complete a home assessment in September. [place] VISIT COUNT (12 MO.) [address] TOTAL 6 NOTE: Visits indicate total known visits. ED/UCC VISIT TRACKING (12 MO.) 02/22/2022 10:[address] [facility] [place] [place] TYPE: Emergency COMPLAINT: - WEAKNESS 10/19/2021 13:[address] [facility] [place] [place] TYPE: Emergency COMPLAINT: - EXTREMITY PAIN/INJURY 10/10/2021 11:[address] [facility] [place] TYPE: Emergency COMPLAINT: - WEAKNESS DIAGNOSES: - Hypertensive heart disease with heart failure - Contact with and (suspected) exposure to COVID-19 - Nicotine dependence, unspecified, uncomplicated - Type 2 diabetes mellitus without complications - Heart failure, unspecified - Syncope and collapse - Old myocardial infarction - Other roasterman (current) drug therapy - Chronic obstructive pulmonary disease, unspecified - Unspecified atrial flutter 10/05/2021 09:01 [facility] TYPE: Emergency COMPLAINT: - SWELLING 09/30/2021 09:18 [facility] TYPE: Emergency COMPLAINT: - RETAINING WATER, UNABLE TO WALK DIAGNOSES: - Hypertensive heart disease with heart failure - Type 2 diabetes mellitus without complications - Chronic obstructive pulmonary disease, unspecified - Heart failure, unspecified - Weakness - Other fdc (current) drug therapy - terminal block assembler (current) use of oral hypoglycemic drugs - Old myocardial infarction - Nicotine dependence, unspecified, uncomplicated 04/12/2021 10:30 [facility] TYPE: Emergency DIAGNOSES: - Chronic combined systolic (congestive) and diastolic (congestive) heart failure - Chest Tightness - Acute combined systolic (congestive) and diastolic (congestive) heart failure - Nicotine dependence, unspecified, uncomplicated INPATIENT VISIT TRACKING (12 MO.) 10/21/2021 16:[address] [facility] [place] TYPE: Critical Care COMPLAINT: - DECOMPENSATED HEART FAILURE DIAGNOSES: - Chronic obstructive pulmonary disease, unspecified - Other fdc (current) drug therapy - Venous insufficiency (chronic) (peripheral) - Nonrheumatic mitral (valve) insufficiency - Type 2 diabetes mellitus without complications - Nonrheumatic mitral (valve) insufficiency - Contact with and (suspected) exposure to COVID-19 - Cellulitis of left lower limb - Gastro-esophageal reflux disease without esophagitis - Cellulitis of right lower limb - Hypertensive heart disease with heart failure - Acute on chronic systolic (congestive) heart failure - Thrombocytopenia, unspecified - Chronic obstructive pulmonary disease, unspecified - Other specified postprocedural states - Patient's other noncompliance with medication regimen - Contact with and (suspected) exposure to COVID-19 - Other specified postprocedural states - Hypertensive heart disease with heart failure - Old myocardial infarction - Personal history of (corrected) congenital malformations of heart and circulatory system - Other fdc (current) drug therapy - Cellulitis of left lower limb - Gastro-esophageal reflux disease without esophagitis - Venous insufficiency (chronic) (peripheral) - Paroxysmal atrial fibrillation - Type 2 diabetes mellitus without complications - Do not resuscitate - Thrombocytopenia, unspecified - Patient's other noncompliance with medication regimen - Nicotine dependence, cigarettes, uncomplicated - Nicotine dependence, cigarettes, uncomplicated - Paroxysmal atrial fibrillation - Old myocardial infarction - Do not resuscitate - Cellulitis of right lower limb - Personal history of (corrected) congenital malformations of heart and circulatory system 10/10/2021 23:57 [facility] [place] TYPE: Medical Surgical COMPLAINT: - POLMONARY HYPOTENSION, MITRAL VALVE REGERGITION DIAGNOSES: 0. Paroxysmal atrial fibrillation 1. Paroxysmal atrial fibrillation 2. Acute on chronic systolic (congestive) heart failure 3. Acute respiratory failure with hypercapnia 4. Acute and chronic respiratory failure with hypoxia 5. Gastrointestinal hemorrhage, unspecified 6. Chronic obstructive pulmonary disease with (acute) exacerbation 6. Procedure and treatment not carried out because of patient's decision for other reasons 7. Hypertensive heart disease with heart failure 7. Procedure and treatment not carried out because of patient's decision for other reasons 8. Hypertensive heart disease with heart failure 8. Chronic obstructive pulmonary disease, unspecified 9. Chronic obstructive pulmonary disease, unspecified 9. Old myocardial infarction 10. Old myocardial infarction 10. Type 2 diabetes mellitus without complications 11. Dilated cardiomyopathy 11. Type 2 diabetes mellitus without complications 12. Syncope and collapse 12. Dilated cardiomyopathy 13. Syncope and collapse 13. Abnormal coagulation profile 14. Abnormal coagulation profile 14. Abrasion, left foot, initial encounter 15. Abrasion, left foot, initial encounter 15. Exposure to other specified factors, initial encounter 16. Exposure to other specified factors, initial encounter 16. Unspecified superficial injury of left lower leg, initial encounter 17. Unspecified superficial injury of left thigh, initial encounter 17. Unspecified superficial injury of left lower leg, initial encounter 18. Unspecified superficial injury of left forearm, initial encounter 18. Unspecified superficial injury of left thigh, initial encounter 19. Unspecified superficial injury of right thigh, initial encounter 19. Unspecified superficial injury of left forearm, initial encounter 20. Unspecified superficial injury of right thigh, initial encounter 20. Other skin changes 21. Abrasion of left upper arm, initial encounter 21. Other skin changes 22. Abrasion of left upper arm, initial encounter 22. Abrasion of left forearm, initial encounter 23. Other fdc (current) drug therapy 23. Abrasion of left forearm, initial encounter 24. Personal history of transient ischemic attack (TIA), and cerebral infarction without residual deficits 24. Other fdc (current) drug therapy 25. Personal history of transient ischemic attack (TIA), and cerebral infarction without residual deficits 25. Personal history of nicotine dependence 26. Contact with and (suspected) exposure to COVID-19 26. Personal history of nicotine dependence 27. Contact with and (suspected) exposure to COVID-19 28. Pressure ulcer of left buttock, unspecified stage 29. Pressure ulcer of sacral region, unspecified stage 10/05/2021 14:[address] [facility] [place] TYPE: Medical Surgical COMPLAINT: - DECOMPENSATED HEART FAILURE DIAGNOSES: - Heart failure, unspecified - Chronic obstructive pulmonary disease, unspecified - Other roasterman (current) drug therapy - Hypertensive heart disease with heart failure - Gastro-esophageal reflux disease without esophagitis - Contact with and (suspected) exposure to COVID-19 - Patient's other noncompliance with medication regimen - Acute bronchospasm - Hypotension, unspecified - Personal history of peptic ulcer disease - Patient's other noncompliance with medication regimen - Contact with and (suspected) exposure to COVID-19 - Type 2 diabetes mellitus without complications - Nicotine dependence, cigarettes, uncomplicated - Nonrheumatic mitral (valve) insufficiency - Biventricular heart failure - Hypotension, unspecified - Atrial septal defect - Acute bronchospasm - Thrombocytopenia, unspecified - Tobacco abuse counseling - Other specified postprocedural states - Nicotine dependence, cigarettes, uncomplicated - Biventricular heart failure - Nonrheumatic mitral (valve) insufficiency - Thrombocytopenia, unspecified - Other roasterman (current) drug therapy - Acute on chronic systolic (congestive) heart failure - Hypertensive heart disease with heart failure - Gastro-esophageal reflux disease without esophagitis - Type 2 diabetes mellitus without complications - Chronic obstructive pulmonary disease, unspecified - Atrial septal defect - Acute on chronic systolic (congestive) heart failure - Other specified postprocedural states - Acute respiratory failure with hypercapnia - Personal history of peptic ulcer disease - Acute respiratory failure with hypercapnia - Tobacco abuse counseling 04/12/2021 10:30 [facility] TYPE: Internal Medicine DIAGNOSES: - Heart failure, unspecified - Chronic combined systolic (congestive) and diastolic (congestive) heart failure - Acute combined systolic (congestive) and diastolic (congestive) heart failure - Nicotine dependence, unspecified, uncomplicated [email or web address]
--- NOTE | 2022-02-24 12:25 | EKG ---
[facility] [address] [place] [address] Signed Wide QRS rhythm Left axis deviation Nonspecific intraventricular block Minimal voltage criteria for LVH, may be normal variant ( Ulises product ) Nonspecific T wave abnormality Abnormal ECG When compared with ECG of 10-OCT-2021 13:15, Wide QRS rhythm has replaced Sinus rhythm Confirmed by Azra Lenz MD () on 02/22/2022 11:31:16 PM Electronically Signed By: AZRA LENZ MD 02/22/22 2331 Electronically Signed By: AZRA LENZ MD 02/24/22 1225 PATIENT NAME: TERRENCE QUINONES Electrocardiogram DATE OF : 36 PHYSICIAN: AZRA LENZ MD REPORT #: [id number] REPORT IS CONFIDENTIAL AND NOT TO BE RELEASED WITHOUT AUTHORIZATION
== END ==
LOC: ED 10:22
DX: N39.0 Urinary tract infection, site not specified (principal); R60.0 Localized edema; L89.152 Pressure ulcer of sacral region, stage 2; I83.12 Varicose veins of left lower extremity with inflammation; I83.11 Varicose veins of right lower extremity with inflammation; I11.0 Hypertensive heart disease with heart failure; I50.9 Heart failure, unspecified; I25.2 Old myocardial infarction; E11.9 Type 2 diabetes mellitus without complications; J44.9 Chronic obstructive pulmonary disease, unspecified; F17.200 Nicotine dependence, unspecified, uncomplicated; Z79.899 Other long term (current) drug therapy; Z20.822 Contact with and (suspected) exposure to COVID-19
CPT/HCPCS: 36415; 71045; 80053; 81001; 82553; 83605; 83880; 85025; 87502; 93005; 93010; 96374; 96375; 96376; 99285-25; C9803; J0696; J1940; J7030; U0003

== ENCOUNTER 2022-02-24 08:06 | Inpatient (IN) | payer MEDICARE, OTHER ==
[~2022-02-24] VITALS: Ht 182.9 cm; Wt 88.4 kg
--- OUTSIDE RECORDS SUMMARY | 2022-02-24 08:08 | XMS ---
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 Martínez has no Care Guidelines for this patient. Care History Medical/Surgical 10/21/2021 [facility] Per Home Health from [facility] on 10/07/2021 - Referral for CHW I was notified on by pts [facility] RN, Nuzhat, pt is living in terrible conditions. He had maggots in his wounds and was so weak he was unable to get up and get food or water.\T\nbsp;She made an APS referral. The next day her pathology manager called and stated his cert period [...] - I left a voice msg with [place] in [place] to determine if they were able to complete a home assessment in September. [facility] (12 MO.) [facility] TOTAL 7 NOTE: Visits indicate total known visits. ED/UCC VISIT TRACKING (12 MO.) 02/24/2022 08:06 [facility] TYPE: Emergency COMPLAINT: - WEAKNESS, BODY ACHES 02/22/2022 10:22 [facility] TYPE: Emergency COMPLAINT: - WEAKNESS 10/19/2021 13:40 [facility] TYPE: Emergency COMPLAINT: - EXTREMITY PAIN/INJURY 10/10/2021 11:52 [facility] TYPE: Emergency COMPLAINT: - WEAKNESS DIAGNOSES: - Type 2 diabetes mellitus without complications - Heart failure, unspecified - Syncope and collapse - Old myocardial infarction - Other mcfp (current) drug therapy - Chronic obstructive pulmonary disease, unspecified - Unspecified atrial flutter - Hypertensive heart disease with heart failure - Contact with and (suspected) exposure to COVID-19 - Nicotine dependence, unspecified, uncomplicated 10/05/2021 09:01 [facility] TYPE: Emergency COMPLAINT: - SWELLING 09/30/2021 09:18 [facility] TYPE: Emergency COMPLAINT: - RETAINING WATER, UNABLE TO WALK DIAGNOSES: - Heart failure, unspecified - Weakness - Other mcfp (current) drug therapy - longterm (current) use of oral hypoglycemic drugs - Old myocardial infarction - Nicotine dependence, unspecified, uncomplicated - Hypertensive heart disease with heart failure - Type 2 diabetes mellitus without complications - Chronic obstructive pulmonary disease, unspecified 04/12/2021 10:30 [facility] TYPE: Emergency DIAGNOSES: - Chest Tightness - Acute combined systolic (congestive) and diastolic (congestive) heart failure - Nicotine dependence, unspecified, uncomplicated - Chronic combined systolic (congestive) and diastolic (congestive) heart failure INPATIENT VISIT TRACKING (12 MO.) 10/21/2021 16:43 [facility] TYPE: Critical Care COMPLAINT: - DECOMPENSATED HEART FAILURE DIAGNOSES: - Patient's other noncompliance with medication regimen - Chronic obstructive pulmonary disease, unspecified - Other specified postprocedural states - Contact with and (suspected) exposure to COVID-19 - Other specified postprocedural states - Old myocardial infarction - Hypertensive heart disease with heart failure - Personal history of (corrected) congenital malformations of heart and circulatory system - Other mcfp (current) drug therapy - Gastro-esophageal reflux disease without esophagitis - Cellulitis of left lower limb - Type 2 diabetes mellitus without complications - Venous insufficiency (chronic) (peripheral) - Paroxysmal atrial fibrillation - Thrombocytopenia, unspecified - Do not resuscitate - Nicotine dependence, cigarettes, uncomplicated - Patient's other noncompliance with medication regimen - Nicotine dependence, cigarettes, uncomplicated - Paroxysmal atrial fibrillation - Old myocardial infarction - Personal history of (corrected) congenital malformations of heart and circulatory system - Do not resuscitate - Cellulitis of right lower limb - Chronic obstructive pulmonary disease, unspecified - Other mcfp (current) drug therapy - Nonrheumatic mitral (valve) insufficiency - Venous insufficiency (chronic) (peripheral) - Type 2 diabetes mellitus without complications - Nonrheumatic mitral (valve) insufficiency - Cellulitis of left lower limb - Contact with and (suspected) exposure to COVID-19 - Hypertensive heart disease with heart failure - Gastro-esophageal reflux disease without esophagitis - Cellulitis of right lower limb - Acute on chronic systolic (congestive) heart failure - Thrombocytopenia, unspecified [facility] 23:[facility] TYPE: Medical Surgical COMPLAINT: - POLMONARY HYPOTENSION, [...] of patient's decision for other reasons 7. Procedure and treatment not carried out because of patient's decision for other reasons 7. Hypertensive heart disease with heart failure 8. Chronic obstructive pulmonary disease, unspecified 8. Hypertensive heart disease with heart failure 9. Old myocardial infarction 9. Chronic obstructive pulmonary disease, unspecified 10. Type 2 diabetes mellitus without complications 10. Old myocardial infarction 11. Type 2 diabetes mellitus without complications 11. Dilated cardiomyopathy 12. Dilated cardiomyopathy 12. Syncope and collapse 13. Abnormal coagulation profile 13. Syncope and collapse 14. Abrasion, left foot, initial encounter 14. Abnormal coagulation profile 15. Exposure to other specified factors, initial encounter 15. Abrasion, left foot, initial encounter 16. Exposure to other specified [...] injury of left forearm, initial encounter 20. Other skin changes 20. Unspecified superficial injury of right thigh, initial encounter 21. Other skin changes 21. Abrasion of left upper arm, initial encounter 22. Abrasion of left forearm, initial encounter 22. Abrasion of left upper arm, initial encounter 23. Other mcfp (current) drug therapy 23. Abrasion of left forearm, initial encounter 24. Personal history of transient ischemic attack (TIA), and cerebral infarction without residual deficits 24. Other mcfp (current) drug therapy 25. Personal history of nicotine dependence 25. Personal history of transient ischemic attack (TIA), and cerebral infarction without residual deficits 26. Personal history of nicotine dependence 26. Contact with and (suspected) exposure to COVID-19 27. Contact with and (suspected) exposure to COVID-19 28. Pressure ulcer of left buttock, unspecified stage 29. Pressure ulcer of sacral region, unspecified stage 10/05/2021 14:25 [facility] TYPE: Medical Surgical COMPLAINT: - DECOMPENSATED HEART FAILURE DIAGNOSES: - Hypotension, unspecified - Nonrheumatic mitral (valve) insufficiency - Biventricular heart failure - Atrial septal defect - Acute bronchospasm - Tobacco abuse counseling - Thrombocytopenia, unspecified - Biventricular heart failure - Other specified postprocedural states - Nicotine dependence, cigarettes, uncomplicated - Thrombocytopenia, unspecified - Nonrheumatic mitral (valve) insufficiency - Hypertensive heart disease with heart failure - Other mcfp (current) drug therapy - Acute on chronic systolic (congestive) heart failure - Type 2 diabetes mellitus without complications - Gastro-esophageal reflux disease without esophagitis - Acute on chronic systolic (congestive) heart failure - Chronic obstructive pulmonary disease, unspecified - Atrial septal defect - Other specified postprocedural states - Acute respiratory failure with hypercapnia - Tobacco abuse counseling - Personal history of peptic ulcer disease - Acute respiratory failure with hypercapnia - Heart failure, unspecified - Chronic obstructive pulmonary disease, unspecified - Hypertensive heart disease with heart failure - 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: Internal Medicine DIAGNOSES: - Chronic combined systolic (congestive) and diastolic (congestive) heart failure - Acute combined systolic (congestive) and diastolic (congestive) heart failure - Nicotine dependence, unspecified, uncomplicated - Heart failure, unspecified [email or web address]
--- NOTE | 2022-02-24 14:21 | EKG ---
[facility] [address] [place] [address] Signed Atrial fibrillation Right superior axis deviation Nonspecific intraventricular block Abnormal ECG When compared with ECG of 22-FEB-2022 10:38, Atrial fibrillation has replaced Wide QRS rhythm Confirmed by Azra Lenz MD () on 02/24/2022 2:21:22 PM Electronically Signed By: AZRA LENZ MD 02/24/221420 PATIENT NAME: SMITHATRINITERRENCE Electrocardiogram DATE OF : 36 PHYSICIAN: AZRA LENZ MD REPORT #: [id number] REPORT IS CONFIDENTIAL AND NOT TO BE RELEASED WITHOUT AUTHORIZATION
--- NOTE | 2022-02-24 15:56 | NUR ---
FAXED SNF REFERRAL CHART TO [facility].
--- NOTE | 2022-02-24 16:00 | NUR ---
VERBAL ORDER GIVEN TO PLACE RODRIGUEZ CATH. PT. DENIES ALLERGIES TO LATEX, IODINE OR LIDOCAINE AND NOT ALLERGIES NOTED IN MAR. PT. TOLERATED WELL. URINE IS CLOUDY AND YELLOW. PT. CLEANED AND O2 SAT SPOT CHECKED. 02 SAT WAS 85% ON 1L. TITRATED TO 3L TO MAINTAIN AN 02 SAT OF 90% OR GREATER. ASSISTED WITH DRINKING WATER. LEFT RESTING WITH ALARM ON AND CALL LIGHT IN REACH.
--- NOTE | 2022-02-24 18:40 | NUR ---
PATIENT IN BED, HAS NOT COMPLETED DINNER OF RIGHT NOW. VITALS COMPLETED. RODRIGUEZ DRAINED AND DOCUMENTED. BED ALARM SET, CALL LIGHT WITHIN REACH.
--- NOTE | 2022-02-24 19:20 | NUR ---
report from bautista rn, pt in bed resting with call light in reach - reviewed chart/pictures of scattered now covered wounds with bautista. pt on tele 4 hr in 60's - ns@75 via iv, oropeza to gravity and 1L nc oxygen.
--- NOTE | 2022-02-24 21:57 | NUR ---
PT TURNED TO LEFT SIDE WITH PILLOW, CONTINUES TO WEAR OXYGEN - 2L NC. NOT ORIENTED TO PLACE OR TIME, CALL LIGHT IN REACH - HARD TO UNDERSTAND HIS SPEECH - DAY RN REPORTS THAT HE MUMBLES BASELINE. PT LINEN CHANGED AND GOWN CHANGED AFTER HIS DINNER WAS SPILLED IN HIS LINENS. RINKU CARE DONE - RODRIGUEZ TO GRAVITY, IV NS@75. PT DENIES NEEDS - CALL LIGHT IN REACH
--- NOTE | 2022-02-24 23:11 | NUR ---
FIXED LEADS TO TELE. PATIENT APPEARS TO BE RESTING WITH EYES CLOSED, RR 16. APPEARS CALM. CALL LIGHT WITHIN REACH.
--- NOTE | 2022-02-25 01:10 | NUR ---
REPOSITIONED, CALL LIGHT IN REACH, RESP EVEN.
--- NOTE | 2022-02-25 04:59 | NUR ---
repositioned pt hob up, assisted with water to drink. denies needs, call light in reach - increase oxygen to 3L nc to keep sats greater than 90%- lungs are wet, and non productive cough noted. pt more alert and talkative.
--- NOTE | 2022-02-25 05:55 | NUR ---
in to assist pt after lab draw - he feels his sugar is low - prn check is 48, ansure apple juice given recheck 15 min bs= 78 pt reports feeling better - followed by ensure shake with carbs/protein/mvi. rn stays with pt - alerted lab to run labs stat for double check of blood sugar value - pt alert and talkative with rn, reports that this has been happening lately in the ams.
--- NOTE | 2022-02-25 06:22 | NUR ---
blood sugar now 111 mg/dl - ccu called tele reads AFib. pt talking, resting in bed - denies needs.
--- NOTE | 2022-02-25 06:32 | NUR ---
dr perez notified of low bs and a fib on tele, no changes -
--- NOTE | 2022-02-25 07:02 | EKG ---
[facility] [address] [facility] [place] [address] Signed Atrial fibrillation Left axis deviation Nonspecific intraventricular block Nonspecific T wave abnormality Abnormal ECG When compared with ECG of 24-FEB-2022 08:25, (Unconfirmed) No significant change was found Confirmed by SAIDA WRAY MD ([id number]) on 02/25/2022 7:02:05 AM Electronically Signed By: SAIDA WRAY MD 02/25/22 0702 PATIENT NAME: TERRENCE QUINONESWEY Electrocardiogram DATE OF : 36 PHYSICIAN: SAIDA WRAY MD REPORT #: [id number] REPORT IS CONFIDENTIAL AND NOT TO BE RELEASED WITHOUT AUTHORIZATION
--- NOTE | 2022-02-25 08:23 | NUR ---
PATIENT REFUSED TO GET UP IN CHAIR THIS AM. WILL APPROACH LATER FOR LUNCH TO GET UP. AM CARE COMPLETED, PT HAS NO OTHER NEEDS AT THIS TIME. CALL LIGHT WITHIN REACH.
--- NOTE | 2022-02-25 09:39 | NUR ---
PATIENT IN BED AFTER MEAL. VITALS AND I/O'S COMPLETED. RODRIGUEZ DRAINED AND DOCUMENTED, PT HAS NO OTHER NEEDS AT THIS TIME. BED ALARM SET. CALL LIGHT WITHIN REACH.
--- NOTE | 2022-02-25 14:00 | NUR ---
ROUNDING ON PT. HE REPORTS PAIN IS IMPROVING IN GROIN. REFUSES TO ELEVATELEGS. PULSE OX PLACED ON TELEMETRY DUE TO PT. PULLING OFF O2 NC. CALL LIGHT IN REACH. ALARM ON..
--- NOTE | 2022-02-25 14:21 | NUR ---
PATIENT IN CHAIR AFTER MEAL. VITALS AND I/O'S COMPLETED. RODRIGUEZ DRAINED AND DOCUMENTED. PT HAS NO OTHER NEEDS AT THIS TIME. CALL LIGHT WITHIN REACH.
--- NOTE | 2022-02-25 15:44 | NUR ---
PATIENT IN BED AFTER SHOWER. BED ALARM SET. PT HAS NO OTHER NEEDS AT THIS TIME. CALL LIGHT WITHIN REACH.
--- NOTE | 2022-02-25 16:28 | NUR ---
LEG WOUNDS REDRESSED AFTER SHOWER WITH XEROFORM, GAUZE WRAP AND COBAND. WHILE ATTEMPTING TO DRESS POSTERIOR THIGH WOUNDS PT. REFUSED AT THIS TIME. WILL ATTEMPT LATER.
--- NOTE | 2022-02-25 20:00 | NUR ---
PATIENT RESTING QUIETLY IN BED, WITH EYES CLOSED. WHEN ASKED IF PATIENT DOING OKAY, PATIENT SHOOK HEAD YES. DENIES ANY NEEDS AT THIS TIME. PROVIDED CATH CARE. NOTED ALL DRESSINGS TO WOUNDS INTACT. LUNG SOUNDS COURSE AND DIMINSHED THROUGHOUT. ASSESMENT DONE. NO INSULIN COVERAGE NEEDED, CBG WITHIN PARAMETER.
--- NOTE | 2022-02-26 00:03 | NUR ---
PATIENT RESTING BACK IN BED. APPEARS COMFORTABLE. BREATHING EVEN AND REGULAR. APPEARS TO HAVE NO NEEDS AT THIS TIME.
--- NOTE | 2022-02-26 00:54 | NUR ---
pt TITRATED FROM 1LNC TO 2LNC, SPO2 RAISED FROM 89-90% TO LOW TO MID 90'S. CALL LIGHT IN REACH AND BED ALARM ON.
--- NOTE | 2022-02-26 07:35 | NUR ---
PT RESTING IN BED AT TIME OF SHIFT REPORT, QUIET ALERT. [address] BREATHING EVEN AND UNLABORED. FRESH H2O TO BEDSIDE, CALL LIGHT IN REACH. PT DENIES NEEDS OF.
--- NOTE | 2022-02-26 09:42 | NUR ---
PT IS LAYING IN BED AFTER BREAKFAST. VITALS AND I/O HAVE BEEN DOCUMENTED. PT HAS NO OTHER NEEDS AT THIS TIME, CALL LIGHT IS WITHIN REACH.
--- NOTE | 2022-02-26 10:15 | NUR ---
PT RESTING IN BED WITH EYES CLOSED, IV SL'D REQUESTED BY NAVDEEP PAULINO. PT FOUND WITHOUT OXYGEN ON, WAS ON 4L NC. NC REPLACED IN NOSE, PT CONTINUED TO COUGH, NONPRODUCTIVE. OXYGEN SATS WERE 76% WITHOUT OXYGEN, INCREASED TO 86-88% WITH 2L NC. OXYGEN INCREASED TO 4L NC AT 1025 OKAYED BY NAVDEEP PAULINO. OXYGEN SAT INCREASED TO 88% ON 4L NC. AT 1030 PT INCREASED TO 91% OXYGEN SAT. WILL REMAIN ON 4L NC UNTIL RECOVERED. RT CALLED TO COME ASSESS PT DUE TO LOW SATS AND COUGHING.
--- NOTE | 2022-02-26 10:52 | NUR ---
PT TOLERATES MOST OF MORNING MEAL. UP TO THE CHAIR WORKS WITH P/T AND IS WATCHING TV NOW, EATING A SNACK. DENIES PAIN OR DISCOMFORTS. 02 ON AT 2LPM NC SATS ARE 95% PT STATES HE FEELS LIKE HE HAS IMPROVED SINCE YESTERDAY.
--- NOTE | 2022-02-26 14:48 | NUR ---
PT CONTINUES UP IN THE RECLINER, CATH CARE COMPLETED. AGREES HE IS COMFORTABLE DENIES NEEDS OF.
[2022-02-26] MEDS ORDERED: LASIX40 MG PO (18:00)
[2022-02-26] MEDS ORDERED: KLOR-CON 1010 MEQ PO (18:01)
--- NOTE | 2022-02-26 21:00 | NUR ---
PATIENT UP IN RECLINER, FULL BODY ASSESMENT DONE. PRODUCT SAFETY ENGINEER PROVIDED HS CARE. PATIENT REPORTS PAIN WELL CONTROLLED. NOTED LUNG SOUNDS COURSE THROUGHOUT, APPEARS TO BE BREATHING EVEN AND REGULAR. NO OTHER NEEDS AT THIS TIME.
--- NOTE | 2022-02-26 21:21 | NUR ---
V/S AND I&O'S TAKEN AND RECORDED. BLOOD SUGAR CHECK DONE AND RECORDED. PATIENT STILL UP IN THE CHAIR. CALL LIGHT WITHIN REACH.
--- NOTE | 2022-02-26 22:22 | NUR ---
TURKEY SANDWICH BOX PROVIDED.
--- NOTE | 2022-02-27 | NUR ---
PATIENT 2 PERSON MAX ASSIST TO BSC WITH FWW AND GAIT BELT. PATIENT UNABLE TO STAND FOR VERY LONG AND NEEDS CUEING. PATIENT HAD SMALL BM. REQUESTED TO STAY IN RECLINER TO SLEEP. POSITIONED PATIENT IN RECLINED POSITION AND PROVIDE PILLOWS FOR SUPPORT. CALL LIGHT WITHIN REACH. WARM BLANKETS PROVIDED. PATIENT REPORTS NO PAIN AT THIS TIME.
--- NOTE | 2022-02-27 01:50 | NUR ---
ROUNDING. PATIENT STILL UP IN THE CHAIR. ROOM LIGHTS OFF PER PATIENT. NO OTHER NEEDS AT THIS TIME.
--- NOTE | 2022-02-27 03:40 | NUR ---
CHANGED TELE BATTERY. PATIENT STILL UP IN THE CHAIR WATCHING TV.
--- NOTE | 2022-02-27 07:24 | NUR ---
PT UP IN THE CHAIR AT TIME OF SHIFT REPORT, STATES HE FEELS REALLY GOOD TODAY. CALL LIGHT IN REACH FRESH H20 AT CHAIR SIDE. DENIES OTHER NEEDS OF
--- NOTE | 2022-02-27 07:53 | NUR ---
CBG IS 60 AT THIS TIME. PT SITTING UP IN THE CHAIR A&O DENIES SYMPTOMS OF LOW SUGAR. PUDDING PROVIDED FOR A SNACK, BREAKFAST TO BE HERE AT ANY TIME.
--- NOTE | 2022-02-27 09:58 | NUR ---
PT EATS ENTIRE BREAKFAST THEN REQUESTS AND EATS ANOTHER BOWL OF OATMEAL. UP IN THE CHAIR DOZING AT THIS TIME. HAS AGREE'D TO SHOWER LATER THIS SHIFT AFTER ABX INFUSION.
--- NOTE | 2022-02-27 10:45 | NUR ---
HERLINDA RODRIGUEZ AT [facility]& PATIENT HAS BEEN ACCEPTED AT THIS TIME. DR. WRAY UPDATED. INTO SPEAK WITH PATIENT WHO AFTER SOME THOUGHT ATTEMPTED TO DECLINE PLACEMENT. MARINA RN FROM CASE MANAGEMENT DOWN TO SPEAK WITH PATIENT. AFTER LENGTHY CONVERSATION ABOUT THE PATIENTS CONDITION AND NEED FOR FURTHER REHAB, THE PATIENT AGREES TO PLACEMENT AT [facility]. ORDERS FOR TRANSFER PRINTED AND GIVEN TO DR. WRAY. HARD COPY OF MEDS FAXED TO [facility].
[2022-02-27] MEDS ORDERED: METOPROLOL SUCC25 MG PO (11:21)
[2022-02-27] MEDS ORDERED: ENTRESTO 24 MG1 EACH PO (11:25)
[2022-02-27] MEDS ORDERED: HYDROCODON-ACE1 EA11 PO (11:27)
[2022-02-27] MEDS ORDERED: FUROSEMIDE20 MG PO (11:29)
[2022-02-27] MEDS ORDERED: LEVOFLOXACIN750 MG PO (11:30)
--- NOTE | 2022-02-27 12:24 | NUR ---
SPOKE WITH PATIENT IN ROOM. PATIENT IS UP IN CHAIR, HAS BEEN ON THE PHONE WHEN I CAME IN. DISCUSSED WITH PATIENT THAT [facility] HIM TO COME THERE AND DO REHAB TO GET SOME STRENGTH BACK. ANSWERED QUESTIONS PATIENT HAD RELATED TO COST, WHEN HE HAS TO GO, HOW HE WANTS TO GO HOME FIRST. HAD A LENGTHY DISCUSSION DUE TO HIS M[place] F[place], ED VISITS AND NOT HAVING THE STRENGTH TO CARE FOR HIMHELF LATELY. DISCUSSED IT IS ULTIMATELY HIS DECISION, BUT REMINDED HIM HE WILL BE RIGHT BACK IN THE SAME SITUATION. HE AGREES WITH THIS. IS WILLING TO GIVE IT A TRY. STATES HE WILL CALL NEIGHBOR TO BRING IN SOME CLOTHES FOR HIM TO TAKE. 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
--- NOTE | 2022-02-27 14:55 | NUR ---
PT CONTINUES UP IN THE CHAIR THIS SHIFT, BREATHING EVEN AND UNLABORED [address] PT AGREES HE IS COMFORTABLE DENIES ANY NEED OF
--- NOTE | 2022-02-27 15:30 | NUR ---
SURENDRA AT [facility] NOTIFIED THAT PATIENT WILL DISCHARGE TO [facility] TOMORROW. SURENDRA WILL CONTACT FACILITY TO ASSIST WITH SET UP ON FINANCIAL ASSESSMENT ON SUNDAY.
--- NOTE | 2022-02-27 17:49 | NUR ---
PT UP IN THE CHAIR EATING EVENING MEAL, AGREES HE IS COMFORTABLE DENIES FURTHER NEEDS OF
--- NOTE | 2022-02-27 19:00 | NUR ---
REPORT RECEIVED FROM JEFFERSON SETHI. PT SITTING UP IN CHAIR AND RESPONDS WHEN ADDRESSED. RR EVEN AND UNLBAORED. PT REPORTS NO NEEDS AT THIS TIME. CALL LIGHT IN REACH.
--- NOTE | 2022-02-27 20:19 | NUR ---
IN TO ADMINISTER MEDICATION, SEE MAR. ASSESSMENT COMPLETE. INSPIRATORY WHEEZE THROUGHOUGHT ALL LOBES. RHONCHI IN RUL AND ALTON THAT CLEARS WITH COUGH. SCATTERED BRUISING AND SCABS TO BUE AND BLE. DRESSINGS TO BLE C/D/I. ALLEVYN'S TO BUE. PT REQUESTING PUDDIND, PUDDING PROVIDED. PT REPORTS NO OTHER NEEDS AT THIS TIME. CALL LIGHT IN REACH. PT SITTING UP IN CHAIR EATING PUDDING. VITALS COMPLETE.
--- NOTE | 2022-02-27 22:45 | NUR ---
IN TO ANSWER CALL LIGHT. PT REQUESTING TO USE URINAL. PT ATTEMPTS TO USE URINAL, BUT IS UNABLE TO VOID. BRITTNEY JAFFE IN ROOM TO ASSIST WITH TRANSFERING PT FROM CHAIR TO BED. LLE DRESSING IS WEEPING. AND LEFT THIGH DRESSING IS NOT COVERING SKIN SHEAR. REMOVED LLE DRESSING AND LEFT THIGH DRESSING. NEW XEROFORM APPLIED TO WOUNDS ON LEFT THIGH AND LLE. COVERED WITH KERLIX. LLE SECURED WITH COBAN. LEFT THIGH SECURED WITH FOAM TAPE. PT INCONTINENT OF URINE. RINKU CARE PERFORMED AND NEW ATTENDS PLACED. PT REPORTS NO OTHER NEEDS AT THIS TIME. CALL LIGHT IN REACH. BED ALARM ON.
--- NOTE | 2022-02-27 23:15 | NUR ---
THIS SHEEPSKIN PICKLER ASSISTED JEFFERSON MARY MOVED PATIENT FROM CHAIR TO BED. PATIENT IS A HEAVY TRANSFER. FRESH GOWN ON.
--- NOTE | 2022-02-28 03:45 | NUR ---
IN TO ROUND ON PT. PT RESTING IN BED WITH EYES CLOSED. RR EVEN AND UNLABORED. PT INCONTINENT OF URINE. RINKU CARE PROVIDED. NEW ATTENDS IN PLACE. ASSESSMENT COMPLETE. LUNG SOUNDS CRACKLES AND WHEEZING THROUGHOUT. DIMINISHED IN RLL AND LLL. PT REPORTS NO OTHER NEEDS AT THIS TIME. CALL LIGHT IN REACH. BED ALARM ON.
--- NOTE | 2022-02-28 05:30 | NUR ---
IN TO ADMINISTER MEDICATIONS, SEE SAILAJA. PT REPORTING PAIN IN HIP PRN PAIN MEDICATION ADMINISTERED, SEE MAR. LAZARO CNA IN TO ASSIST PT WITH SHOWER. 2PA FROM BED TO SHOWER CHAIR. DRESSINGS REMOVED. IV REMOVED AND INTACT. VITALS AND I&Os COMPLETE. NO OTHER NEEDS FROM THIS RN AT THIS TIME.
--- NOTE | 2022-02-28 06:02 | NUR ---
PT GOT SHOWER. PT UP IN CHAIR. CALL LIGHT WITHIN REACH NO FURTHER TASKS AT THIS TIME
--- NOTE | 2022-02-28 07:00 | NUR ---
IN TO ASSIST JEFFERSON RICO WITH DRESSINGS TO PTs BLE. XEROFORM, KRELIX AND COBAN WITH NO TENSION TO SECURE. PT TOLERATED WELL. PT REPORTS NO OTHER NEEDS AT THIS TIME. BRITTNEY WILLIS IN ROOM TO DRESS PT.
--- NOTE | 2022-02-28 07:30 | NUR ---
Faxed Face sheet, PASRR, and orders to Anupama at [facility]. Sent text stating orders have been faxed. Spoke with staff, they will call the taxi for transport at 8 am.
--- NOTE | 2022-02-28 07:33 | NUR ---
REPORT FROM UROLOGIC SURGEON
--- NOTE | 2022-02-28 07:48 | NUR ---
BRIEF MORNING ASSESSMENT DONE, VITALS DONE. PATIENT HAS FINISHED BREAKFAST. IN WHEELCHAIR WITH 2PA, NORCO O2 TANK PROVIDED, PER D/C PLANNING.
--- NOTE | 2022-02-28 08:02 | NUR ---
REPORT CALLED TO REHAB.
== END 2022-02-28 08:05 | DRG 193 ==
LOC: ED 08:06 → MS 08:07
PROVIDERS: ADMIT Family Medicine; ATTEND Internal Medicine
DX: J18.9 Pneumonia, unspecified organism (principal); J96.01 Acute respiratory failure with hypoxia; N39.0 Urinary tract infection, site not specified; I50.22 Chronic systolic (congestive) heart failure; J44.0 Chronic obstructive pulmonary disease with (acute) lower respiratory infection; Z66 Do not resuscitate; Z20.822 Contact with and (suspected) exposure to COVID-19; E87.5 Hyperkalemia; I48.91 Unspecified atrial fibrillation; E11.9 Type 2 diabetes mellitus without complications; F17.210 Nicotine dependence, cigarettes, uncomplicated; I11.0 Hypertensive heart disease with heart failure; I25.2 Old myocardial infarction; Z79.899 Other long term (current) drug therapy
CPT/HCPCS: 36415; 36600; 51702; 71045; 71260; 80053; 81001; 82553; 82803; 83605; 83880; 85025; 87088; 87502; 93005; 93010; 94640; 94762; 97110; 97162; 97166; 99285-25; A9270; C9803; J0456; J0696; J1650; J1815; J1940; J7030; J7060; U0003